=== PATIENT | female | born 1960 | race Caucasian/White ===

== ENCOUNTER 2016-07-03 11:43 | Observation (INO) ==
[2016-07-03] MEDS ORDERED: Aspirin 81 MG TAB.CHEW PO ONE (15:03)
--- NOTE | 2016-07-03 15:08 | Emergency Department Note ---
Disposition Clinical Impression: Chest pain Qualifiers: Chest pain type: unspecified Qualified Code(s): R07.9 - Chest pain, unspecified GI bleed Qualifiers: GI bleed type/associated pathology: unspecified gastrointestinal hemorrhage type Qualified Code(s): K92.2 - Gastrointestinal hemorrhage, unspecified Disposition: Admitted As Inpatient Condition: Fair Referrals: Gabriel Ramos, PAC [Primary Care Provider] - Forms: ED Satisfaction Letter Time of Disposition: 16:54 Chest Pain HPI - General Chief Complaint: ED Recheck/Abnormal Lab/Rx Stated Complaint: abn EKG Time Seen by Provider: 07/03/16 14:59 Source: patient Limitations: no limitations Vital Signs Reviewed: Yes Nursing Notes Reviewed: Yes - History of Present Illness HPI Narrative: 55-year-old whose been having intermittent chest pain for the last several days. Recent states she's had no recent cardiac workup. She saw her family doctor today and he was concerned that she had an abnormal EKG. On arrival review of her EKG shows no significant change from previous done in 2014. The patient states she does have exertional chest pain with exertional dyspnea that has been progressive over the last couple weeks. Pt complaint: chest pain Onset (ago): week(s) Duration: intermittent Onset: during exertion Pain Location: substernal, left chest Severity: mild, moderate Severity scale (1-10): 0 Quality: tightness, heaviness Pain Radiation: none Improves with: rest Worsens with: exertion Associated symptoms: Denies: syncope, palpitations, fever, cough Treatments prior to arrival chest pain: none - Related Data Home Medications Medication Instructions Recorded Confirmed Aspirin 81 mg PO DAILY 04/22/16 07/03/16 Atenolol [Tenormin] 50 mg PO HS 04/22/16 07/03/16 Furosemide [Lasix] 40 mg PO DAILY 04/22/16 07/03/16 Insulin DETEMIR [Levemir] 64 unit SQ QPM 04/22/16 07/03/16 Insulin DETEMIR [Levemir] 67 unit SQ QAM 04/22/16 07/03/16 Insulin LISPRO [Humalog] 0 unit SQ BID 04/22/16 07/03/16 Metformin HCl [Metformin HCl] 1,000 mg PO BID 04/22/16 07/03/16 Omeprazole [PriLOSEC] 40 mg PO DAILY 04/22/16 07/03/16 Pravastatin Sodium [Pravachol] 80 mg PO HS 04/22/16 07/03/16 Valsartan [Diovan] 80 mg PO DAILY 04/22/16 07/03/16 Albiglutide [Tanzeum] 30 mg SQ QWEEK 07/03/16 07/03/16 Pregabalin [Lyrica] 100 mg PO BID 07/03/16 07/03/16 Allergies Allergy/AdvReac Type Severity Reaction Status Date / Time codeine AdvReac Chest Pain Verified 07/03/16 11:52 ibuprofen AdvReac See Verified 07/03/16 11:52 Comments All systems ED: reviewed and negative except as stated. Constitutional: Denies: fever, chills, weakness, weight change Eyes: Denies: eye pain, eye discharge, vision change ENT ED: Denies: ear pain, throat pain, dental pain, hearing loss, epistaxis, congestion, dysphagia Cardiovascular: Reports: chest pain, dyspnea on exertion. Denies: palpitations , edema, syncope Respiratory: Denies: cough, dyspnea, wheezes, hemoptysis, stridor Gastrointestinal: Denies: abdominal pain, nausea, vomiting, diarrhea, constipation, hematemesis, melena, hematochezia Genitourinary: Denies: dysuria, frequency, hematuria, discharge Musculoskeletal: Denies: back pain, neck pain, arthralgia, myalgia Integumentary: Denies: rash, abrasion, lesions Neurological: Denies: headache, weakness, numbness, paresthesias, confusion, abnormal gait, vertigo Psychiatric: Denies: anxiety, depression, suicidal thoughts, homicidal thoughts , auditory hallucinations, visual hallucinations Endocrine: Denies: fatigue Hematological/Lymphatic: Denies: easy bleeding, easy bruising Allergic/Immunologic: Denies: facial swelling, urticaria Chest Pain PMH - Past Medical History Medical history: Reports: arthritis, diabetes, fibromyalgia, migraine, other Surgical history: Reports: cholecystectomy, herniorrhaphy, hysterectomy, other Psychiatric history: Reports: no psych history EMBEDDED SOFTWARE ARCHITECT history: Reports: no EMBEDDED SOFTWARE ARCHITECT history - Social History Smoking Status: Never smoker Alcohol use: Reports: none Drug use: Reports: none Physical Exam - General Limitations: no limitations General appearance: alert, in no apparent distress - Head Head exam: atraumatic, normocephalic, normal inspection - Eye Eye exam: Present: normal appearance, PERRL, EOMI - ENT ENT exam: normal exam, normal oropharynx, mucous membranes moist - Neck Neck exam: Present: normal inspection, full ROM, trachea midline - Chest Chest inspection: Present: normal inspection, symmetric chest wall rise - Respiratory Respiratory exam: Present: normal lung sounds bilaterally - Cardiovascular Cardiovascular exam: Present: regular rate, normal rhythm, normal heart sounds - Abdominal Exam Abdominal exam: Present: soft, Non-Tender. Absent: guarding, rebound - Rectal Exam Product Support Sales Representative present during exam: Yes Rectal exam: Present: heme (+) stool, hemorrhoids - Extremities Exam Extremities exam: Present: normal inspection, full ROM. Absent: tenderness, pedal edema - Expanded Lower Extremity Exam Neurovascular/Tendon exam: Absent: motor deficit, sensory deficit, tendon deficit Gait: observed and normal - Back Exam Back exam: Present: normal inspection, full ROM. Absent: tenderness - Neurological Exam Neurological exam: Present: alert, oriented X3 - Psychiatric Psychiatric exam: Present: normal affect, normal mood - Skin Skin exam: Present: warm, dry, intact, normal color Course - Reevaluation(s) Reevaluation #1: 55-year-old with exertional dyspnea and some intermittent exertional chest pain there was noted to have a hemoglobin of 7.4. Since the previous hemoglobin was low in March that was normal prior to that. The patient does state that she's had some dark stools. She is having no gross blood. Rectal exam is guaiac positive. Time: 16:53 - Consultations Consultation #1: Discussed with Dr. Poe, admit. Time: 17:39 Consultation #2: Discussed with Dr. Laguerre will see in consult. Time: 17:46 Vital Signs Temperature 98.0 F 07/03/16 11:48 Pulse Rate 59 07/03/16 11:48 Respiratory Rate 18 07/03/16 11:48 Blood Pressure 108/48 07/03/16 11:48 O2 Sat by Pulse Oximetry 99 07/03/16 11:48 Temperature 98.0 F 07/03/16 11:48 Pulse Rate 54 07/03/16 16:42 Respiratory Rate 18 07/03/16 16:42 Blood Pressure 98/72 07/03/16 16:42 O2 Sat by Pulse Oximetry 100 07/03/16 16:42 Oxygen Delivery Oxygen Delivery Room Air Chest Pain - Lab Data Lab results reviewed: Yes I reviewed the patient's lab results. Result diagrams: 07/03/16 15:21 07/03/16 15:21 Lab Results 07/03/16 07/03/16 07/03/16 Range/Units 15:21 15:21 15:21 WBC 4.4 (4.3-11.1) K/mcL RBC 3.85 (3.82-4.97) M/mcL Hgb 7.4 L (11.5-15.4) g/dL Hct 27.2 L (35.3-44.9) % MCV 70.6 L (83.0-100.0) fL MCH 19.2 L (28.0-33.3) pg MCHC 27.2 L (31.6-35.5) g/dL RDW 18.0 H (11.5-14.5) % Plt Count 153 (140-400) K/mcL MPV 10.5 (9.4-12.4) fL Immature Gran % 0.9 (0-4) % Seg Neutrophils % 56.9 % Lymphocytes % 30.9 % Monocytes % 7.5 % Eosinophils % 3.6 % Basophils % 0.2 % Neutrophils # 2.5 (1.6-8.9) K/mcL Lymphocytes # 1.4 (0.6-4.6) K/mcL Monocytes # 0.3 (0.0-1.3) K/mcL Eosinophils # 0.2 (0.0-0.6) K/mcL Basophils # 0.0 (0.0-0.2) K/mcL Polychromasia 1+ A (Not Present) Hypochromasia Present A (Not Present) PT 11.8 (9.4-12.1) Seconds INR 1.1 APTT 30.5 (26.0-36.0) Seconds Sodium 142 (136-145) mEq/L Potassium 3.7 (3.5-4.5) mEq/L Chloride 105 (98-109) mEq/L Carbon Dioxide 25 (19-29) mEq/L BUN 16 (7-20) mg/dL Creatinine 0.83 (0.57-1.11) mg/dL Est GFR ( Amer) > 60 (> 60) Est GFR (Non-Af Amer) > 60 (> 60) BUN/Creatinine Ratio 19 (6-26) Glucose 214 H (70-99) mg/dL Calculated Osmolality 302 H (280-300) Calcium 9.3 (8.6-10.8) mg/dL Troponin I (0-0.03) ng/mL 07/03/16 Range/Units 15:21 WBC (4.3-11.1) K/mcL RBC (3.82-4.97) M/mcL Hgb (11.5-15.4) g/dL Hct (35.3-44.9) % MCV (83.0-100.0) fL MCH (28.0-33.3) pg MCHC (31.6-35.5) g/dL RDW (11.5-14.5) % Plt Count (140-400) K/mcL MPV (9.4-12.4) fL Immature Gran % (0-4) % Seg Neutrophils % % Lymphocytes % % Monocytes % % Eosinophils % % Basophils % % Neutrophils # (1.6-8.9) K/mcL Lymphocytes # (0.6-4.6) K/mcL Monocytes # (0.0-1.3) K/mcL Eosinophils # (0.0-0.6) K/mcL Basophils # (0.0-0.2) K/mcL Polychromasia (Not Present) Hypochromasia (Not Present) PT (9.4-12.1) Seconds INR APTT (26.0-36.0) Seconds Sodium (136-145) mEq/L Potassium (3.5-4.5) mEq/L Chloride (98-109) mEq/L Carbon Dioxide (19-29) mEq/L BUN (7-20) mg/dL Creatinine (0.57-1.11) mg/dL Est GFR ( Amer) (> 60) Est GFR (Non-Af Amer) (> 60) BUN/Creatinine Ratio (6-26) Glucose (70-99) mg/dL Calculated Osmolality (280-300) Calcium (8.6-10.8) mg/dL Troponin I 0.00 (0-0.03) ng/mL - EKG Data EKG attestation: Yes I reviewed and interpreted this EKG. EKG shows normal: sinus rhythm Rate: bradycardia Rhythm: NSR When compared to previous EKG there are: no significant changes (11/21/2014) Interpretation: no acute changes Heart Score - Score History: Moderately Suspicious EKG: Non Specific repolarisation Disturbance Age: 45-65 Risk Factors: 1-2 risk factors Troponin: Less than normal limit HEART Score Total: 4 Critical Care Time Critical Care Time: Yes Total Critical Care Time: 30 Attestation: The high probability of a clinically significant, sudden or life threatening deterioration of the [cardiovascular] system(s) required my full and direct attention, intervention and personal management. The aggregate critical care time was [30] minutes. This time is in addition to time spent performing reported procedures but includes the following: [x] Data Review and interpretation [x] Patient assessment and monitoring of vital signs [x] Documentation [x] Medication orders and management
[2016-07-03 15:36] LABS: Basophils % 0.2 %; Eosinophils # 0.2 K/mcL (0.0-0.6); Eosinophils % 3.6 %; Hematocrit 27.2 % (35.3-44.9); Hemoglobin 7.4 g/dL (11.5-15.4); Immature Granulocytes % 0.9 % (0-4); Lymphocytes # 1.4 K/mcL (0.6-4.6); Lymphocytes % 30.9 %; Mean Corpuscular HGB Conc 27.2 g/dL (31.6-35.5); Mean Corpuscular Hemoglobin 19.2 pg (28.0-33.3); Mean Corpuscular Volume 70.6 fL (83.0-100.0); Mean Platelet Volume 10.5 fL (9.4-12.4); Monocytes # 0.3 K/mcL (0.0-1.3); Monocytes % 7.5 %; Neutrophils # 2.5 K/mcL (1.6-8.9); Platelet Count 153 K/mcL (140-400); Red Blood Count 3.85 M/mcL (3.82-4.97); Segmented Neutrophils % 56.9 %
[2016-07-03 15:44] LABS: INR 1.1; Prothrombin Time 11.8 Seconds (9.4-12.1)
[2016-07-03 15:46] LABS: Activated Partial Thrombo Time 30.5 Seconds (26.0-36.0)
[2016-07-03 15:47] LABS: BUN/Creatinine Ratio 19 (6-26); Blood Urea Nitrogen 16 mg/dL (7-20); Calcium 9.3 mg/dL (8.6-10.8); Carbon Dioxide 25 mEq/L (19-29); Chloride 105 mEq/L (98-109); Glucose 214 mg/dL (70-99); Osmolality,Calculated 302 (280-300); Potassium 3.7 mEq/L (3.5-4.5); Sodium 142 mEq/L (136-145); eGFR For African Americans > 60 (> 60); eGFR For Non-African Americans > 60 (> 60)
[2016-07-03 16:01] LABS: Hypochromasia Present (Not Present); Polychromasia 1+ (Not Present)
[2016-07-03] MEDS ORDERED: Pantoprazole 40 MG VIAL IVP ONE (16:56)
--- NOTE | 2016-07-03 20:38 | Internal Med History&Physical ---
<Mitesh Torres - Last Filed: 07/03/16 23:34> Date of Encounter: 07/03/16 Time of Encounter: 20:00 Assessment and Plan (1) GI bleed Current visit: Yes Status: Acute - Reported dark stool with positive guaiac test in ED. - Likely upper GI bleed given the melena and history of GERD. - Protonix 40 mg IV BID. - ED physician had called and consulted Dr. Laguerre of [facility]. Appreciate further evaluation and recommendations. - NPO now for possible EGD tomorrow. Qualifiers: GI bleed type/associated pathology: unspecified gastrointestinal hemorrhage type Qualified Code(s): K92.2 - Gastrointestinal hemorrhage, unspecified (2) Microcytic anemia Current visit: Yes Status: Acute - Hgb 7.4 today with MCV 70.6. - Symptomatic anemia with exertional dyspnea and chest pain. - Most likely secondary to GI bleed but patient may have iron deficiency anemia at her baseline given patient's prior CBC in March 2016 also showed microcytic anemia. - Pending iron panel and ferritin. - Patient is receiving one unit of pRBC. - Closely monitor H&H an consider more pRBC transfusion accordingly. (3) Chest pain Current visit: Yes Status: Resolved - Exertional chest tightness associated with shortness of breath. - Likely demand ischemia secondary to current anemia. - Unlikely DC given negative troponin with no significant ischemic change on EKG. - Patient reports no chest pain/discomfort at this time. Qualifiers: Chest pain type: unspecified Qualified Code(s): R07.9 - Chest pain, unspecified (4) Diabetes mellitus Current visit: Yes Status: Chronic - With neuropathy and on basal & sliding scale insulin at home. - Will switch to q6H sliding scale insulin with moderate correction for now given patient will be NPO tonight for possible EGD tomorrow. - Continue to monitor blood glucose closely. Qualifiers: Diabetes mellitus type: type 2 Diabetes mellitus complication status: with neurologic complications Diabetes mellitus complication detail: with polyneuropathy Diabetes mellitus keno terminal operator insulin use: with keno terminal operator use Qualified Code(s): E11.42 - Type 2 diabetes mellitus with diabetic polyneuropathy; Z79.4 - residential (current) use of insulin (5) Hypertension Current visit: Yes Status: Chronic - BP within normal range. - Continue home antihypertensive regimen. Qualifiers: Hypertension type: essential hypertension Qualified Code(s): I10 - Essential (primary) hypertension (6) DVT prophylaxis Current visit: Yes Status: Acute - Given current GI bleed, no pharmacologic DVT prophylaxis at this time. - Start calf pump as mechanical DVT prophylaxis. Internal Medicine - H&P: HPI Chief complaint: Chest pain and dyspnea on exertion Admitted From: Emergency Dept Plans for Post Hospital Care: Home History of present illness: Ms. Andino is a 55 year old female with PMH of DM with neuropathy, GERD on omeprazole, fibromyalgia, migraine, HTN, hyperlipidemia. Patient was sent from her PCP clinic to [facility] for abnormal EKG. Patient reports having worsening intermittent chest pain and dyspnea on exertion for past 3 weeks. Patient also reports having occasional dark stool in past 3 weeks. Patient reports no easily bruise, bleeding, hematemesis, hemopytysis, hematuria. Patient denies lightheadedness, syncope, palpitation, abdominal pain, nausea, vomiting, diarrhea, fever, chills. Patient recalls no EGD in the past. She did have colonoscopy done in 2008 and was told it's normal at that time. Patient denies known cardiac problem. In ED, patient has positive stool guaiac test. Patient received IV Protonix and Dr. Laguerre of [facility] was called and consulted. Past Med Surg Social Fam HX - Past Medical History Medical history: arthritis, diabetes (with neuropathy), fibromyalgia, migraine, other Psychiatric history: no psych history - Past Surgical History Surgical History: cholecystectomy, herniorrhaphy, hysterectomy, other - Social History Smoking Status: Never smoker Smokeless Tobacco Status: No Alcohol use: none Drug use: none - Family History Sister Living Status: Age at : 49 Cause of : cardiac Hx Family Cardiac Disorders: Yes Mother Hx Family Endocrine Disorder: Yes (DM) Internal Medicine - H&P: Meds Aspirin 81 mg PO DAILY 04/22/16 [History] Atenolol [Tenormin] 50 mg PO HS 04/22/16 [History] Furosemide [Lasix] 40 mg PO DAILY 04/22/16 [History] Insulin DETEMIR [Levemir] 64 unit SQ QPM 04/22/16 [History] Insulin DETEMIR [Levemir] 67 unit SQ QAM 04/22/16 [History] Insulin LISPRO [Humalog] 0 unit SQ BID 04/22/16 [History] Metformin HCl [Metformin HCl] 1,000 mg PO BID 04/22/16 [History] Omeprazole [PriLOSEC] 40 mg PO DAILY 04/22/16 [History] Pravastatin Sodium [Pravachol] 80 mg PO HS 04/22/16 [History] Valsartan [Diovan] 80 mg PO DAILY 04/22/16 [History] Albiglutide [Tanzeum] 30 mg SQ QWEEK 07/03/16 [History] Insulin LISPRO [HumaLOG] 0 units SQ BID 07/03/16 [History] Pregabalin [Lyrica] 100 mg PO BID 07/03/16 [History] Allergies codeine Adverse Reaction (Verified 07/03/16 11:52) Chest Pain ibuprofen Adverse Reaction (Verified 07/03/16 11:52) See Comments PATIENT STATES UNABLE TO TAKE DUE TO TYPE [address] ORDERS All Systems PM: A 10-system review of systems was performed and is negative for pertinent findings except as documented above in the HPI. - Constitutional Constitutional: no anorexia, no chills, no fever(s) - EENT Eyes: no change in vision Ears: no decreased hearing Nose, mouth and throat: no dysphagia, no odynophagia - Cardiovascular Cardiovascular ROS IM: chest pain (Exertional), no diaphoresis, no lightheadedness, no palpitations, no syncope - Respiratory Respiratory: dyspnea on exertion, no cough, no hemoptysis - Gastrointestinal Gastrointestinal: as per HPI - Genitourinary Genitourinary: dysuria, no difficulty urinating, no hematuria - Musculoskeletal Musculoskeletal ROS IM: no arthralgias, no myalgias - Integumentary Integumentary IM: no pruritus, no rash - Neurological Neurological ROS: tingling (Chronic, from DM neuropathy) - Hematologic/Lymphatic Hematologic/Lymphatic: no easy bleeding, no easy bruising - Constitutional Vitals: Temp Pulse Resp BP Pulse Ox 98.2 F 60 14 108/70 95 07/03/16 20:11 07/03/16 20:11 07/03/16 20:11 07/03/16 20:11 07/03/16 20:11 General appearance: Present: cooperative, A&O X 3, no acute distress, answers questions appropriately - Head Head exam: Present: atraumatic, normocephalic - Eye Eye exam: Present: PERRL, conjuntiva pink, sclera anicteric - Neck Neck exam general surgery: Present: supple, trachea midline. Absent: lymphadenopathy - Respiratory Respiratory exam: Present: CTAB. Absent: accessory muscle use, rales, rhonchi, wheezes - Cardiovascular Cardiovascular exam: Present: RRR, +S1, +S2. Absent: diastolic murmur, gallop, rubs, systolic murmur - GI/Abdominal GI/Abdominal exam: Present: normal bowel sounds, soft, no peritoneal signs. Absent: distended, tenderness - Extremities Exam Extremities exam: Present: warm, radial pulses palpable and symetrical. Absent : calf tenderness, cyanotic, pedal edema - Neurological Exam Neurological exam: Present: CN II-XII intact, oriented X3, no focal deficits. Absent: pronater drift, facial droop, speech deficit - Skin Skin exam: Present: dry, intact, warm Internal Med - H&P Results - Labs CBC & Chem 7: 07/03/16 15:21 07/03/16 15:21 <Andi Chawla - Last Filed: 07/04/16 05:18> Date of Encounter: 07/03/16 Internal Medicine - H&P: HPI History of present illness: Ms. Andino is a 55 year old female All Systems PM: A 10-system review of systems was performed and is negative for pertinent findings except as documented above in the HPI. - Constitutional Vitals: Temp Pulse Resp BP Pulse Ox 98.1 F 55 16 110/66 95 07/04/16 03:59 07/04/16 03:59 07/04/16 03:59 07/04/16 03:59 07/04/16 03:59 Internal Med - H&P Results - Labs CBC & Chem 7: 07/03/16 15:21 07/04/16 03:51 Labs: BMP 07/04/16 03:51 Sodium 141 Potassium 3.7 Chloride 107 Carbon Dioxide 23 BUN 16 Creatinine 0.94 Glucose 272 H Calcium 8.9 Liver Function 07/04/16 Range/Units 03:51 Total Bilirubin 0.5 (0.2-1.2) mg/dL AST 35 H (5-34) Units/L ALT 23 (0-55) Units/L Alkaline Phosphatase 73 (38-126) Units/L Albumin 2.9 L (3.5-5.0) g/dL Urine 07/04/16 Range/Units 01:35 Urine Color Yellow (Yellow) Urine Clarity Cloudy A (Clear) Urine pH 7.0 (5.0-8.0) pH Units Ur Specific [place] 1.030 H (1.010-1.025) Urine Protein Negative (Neg-Trace) mg/dL Urine Glucose (UA) >=1000 H (Normal) mg/dL - EKG Data -: EKG Interpreted by Myself EKG shows normal: sinus rhythm Rate: bradycardia - EKG Data Prior EKG available for review: yes When compared to previous EKG: there is no significant change Interpretation IM: normal EKG - Diagnostic Studies Chest x-ray Status: image reviewed by me - Attending Attestation I interviewed and examined this patient and my medical decision-making was reviewed with the Resident Physician. I agree with the documented findings, disposition and treatment plan as described.
[2016-07-03] MEDS ORDERED: Naloxone 0.4 MG/ML INJ IVP PRN (20:41)
[2016-07-03] MEDS ORDERED: Acetaminophen 325 MG TABLET PO PRN (20:41)
[2016-07-03] MEDS ORDERED: Dextrose Gel 15 GM PO PRN ×2 (20:45)
[2016-07-03] MEDS ORDERED: *HR* Dextrose 50 % in Water (Syg) 50 ML SYRINGE IVP PRN (20:45)
[2016-07-03] MEDS ORDERED: D5% in Water 1,000 ML IVC PRN (20:45)
[2016-07-03] MEDS: Pregabalin 50 MG CAPSULE PO SCH (21:22)
[2016-07-03] MEDS: Pantoprazole 40 MG VIAL IVP SCH (21:22)
[2016-07-03 22:37] LABS: % Iron Saturation 5 % (15-50); Iron 24 mcg/dL (50-170); Transferrin 353 mg/dL (180-382)
[2016-07-03 22:56] LABS: Ferritin 15 ng/ml (5-204)
[2016-07-04] MEDS: Insulin LISPRO 300 UNITS/3 ML VIAL SQ SCH ×4 (00:05→18:55)
[2016-07-04 02:04] LABS: Bilirubin,Urine Negative (Negative); Blood,Urine Negative (Negative); Clarity,Urine Cloudy (Clear); Color,Urine Yellow (Yellow); Glucose,Urine (UA) >=1000 mg/dL (Normal); Ketones,Urine Negative (Negative); Leukocyte Esterase,Urine Moderate (Negative); Nitrite,Urine Negative (Negative); Protein,Urine Negative (Neg-Trace); Urobilinogen,Urine Normal (Normal)
[2016-07-04 02:06] LABS: Bacteria,Urine None Seen per hpf (None-Few); Hyaline Casts,Urine None Seen per lpf (None-Few); Squamous Epithelial Cell,Urine Many per lpf (None-Few); WBC,Urine TNTC per hpf (0-3)
[2016-07-04 04:41] LABS: Immature Granulocytes % 0.7 % (0-4); Mean Corpuscular Hemoglobin 20.3 pg (28.0-33.3)
[2016-07-04 04:43] LABS: Basophils % 0.2 %; Eosinophils # 0.2 K/mcL (0.0-0.6); Eosinophils % 4.5 %; Hematocrit 26.4 % (35.3-44.9); Hemoglobin 7.3 g/dL (11.5-15.4); Immature Platelets 7.6 % (1.1-6.1); Lymphocytes # 1.4 K/mcL (0.6-4.6); Lymphocytes % 31.6 %; Mean Corpuscular HGB Conc 27.7 g/dL (31.6-35.5); Mean Corpuscular Volume 73.5 fL (83.0-100.0); Mean Platelet Volume 10.8 fL (9.4-12.4); Monocytes % 9.9 %; Neutrophils # 2.4 K/mcL (1.6-8.9); Nucleated Red Blood Cells 0.4 /100 WBC (0); Platelet Count 137 K/mcL (140-400); Red Blood Count 3.59 M/mcL (3.82-4.97); Red Cell Distribution Width 18.9 % (11.5-14.5); Segmented Neutrophils % 53.1 %
[2016-07-04 04:55] LABS: Alanine Aminotransferase 23 Units/L (0-55); Albumin 2.9 g/dL (3.5-5.0); Albumin/Globulin Ratio 1.1 (1.1-2.2); Alkaline Phosphatase 73 Units/L (38-126); Aspartate Amino Transferase 35 Units/L (5-34); BUN/Creatinine Ratio 17 (6-26); Bilirubin,Total 0.5 mg/dL (0.2-1.2); Blood Urea Nitrogen 16 mg/dL (7-20); Calcium 8.9 mg/dL (8.6-10.8); Carbon Dioxide 23 mEq/L (19-29); Chloride 107 mEq/L (98-109); Globulin 2.7 g/dL (2.4-3.5); Glucose 272 mg/dL (70-99); Osmolality,Calculated 303 (280-300); Potassium 3.7 mEq/L (3.5-4.5); Sodium 141 mEq/L (136-145); Total Protein 5.6 g/dL (6.0-8.3); eGFR For African Americans > 60 (> 60); eGFR For Non-African Americans > 60 (> 60)
[2016-07-04 06:04] LABS: Monocytes # 0.5 K/mcL (0.0-1.3)
[2016-07-04 06:16] LABS: Anisocytosis 1+ (Not Present); Hypochromasia Present (Not Present); Large Platelets Present (Not Present); Microcytosis Present (Not Present); Platelet Estimate Slight Decrease (Normal)
[2016-07-04] MEDS: Pregabalin 50 MG CAPSULE PO SCH ×2 (08:33→20:17)
[2016-07-04] MEDS: Furosemide 40 MG TABLET PO SCH (08:33)
[2016-07-04] MEDS: Valsartan 80 MG TABLET PO SCH (08:33)
[2016-07-04] MEDS: Pantoprazole 40 MG VIAL IVP SCH ×2 (08:35→20:17)
--- NOTE | 2016-07-04 11:53 | Electrocardiograph Report ---
[address] [place], [place] [address] Test Date: 2016-07-03 Pat Name: Mariela Andino Department: 104 Room: 3B Gender: F Informatics Consultant: : 1960 Requested By: Yue See Order Number: [id number] Reading MD: Rory Lima MD Measurements Intervals [place] Rate: 55 P: 3 TN: 180 QRS: -7 QRSD: 110 T: -7 QT: 441 QTc: 430 Interpretive Statements SINUS BRADYCARDIA ANTERIOR ISCHEMIA Electronically Signed On 07-04-2016 11:52:22 EDT by Rroy Lima MD
--- NOTE | 2016-07-04 16:26 | General Surgery Consult Note ---
Date of Encounter: 07/04/16 Time of Encounter: 16:20 Assessment and Plan (1) Microcytic anemia Current Visit: Yes Status: Acute Patient was hemoccult positive in the ED Her hgb was documented as being low in March 2016 - 8.4 Recommend PPI therapy daily Carafate QID for 2 weeks May check H. Pylori Plan for outpatient follow-up with Dr. Laguerre to discuss outpatient EGD/ Colonoscopy in the upcoming weeks. Clear liquid diet Advance to regular diet as tolerated History of Present Illness Consult date: 07/04/16 Requesting physician: Jorge Egan History of present illness: Ms. Andino is a very pleasant 55 year old female who presented to [facility] ED at the recommendation of her PCP for a low hemoglobin. The patient states that she has been feeling more fatigued and short of breath with exertion lately. She states that she has been trying to be more active at the recommendation of her PCP. She states that her symptoms have increasingly worsened over the past 3 weeks. She denies any melena or hematochezia. She states that she may have had some darker than typical stools over the past few weeks. She denies any nausea or vomiting. Denies any abdominal discomfort. Denies any unexplained weight loss. Denies any family history of colon cancer. Denies any NSAID or chronic aspirin use. We have been asked to see and evaluate the patient for endoscopic evaluation. Past Med Surg Social Fam HX - Past Medical History Source: patient, old records reviewed Medical history: arthritis, diabetes (with neuropathy), fibromyalgia, migraine, other Psychiatric history: no psych history - Past Surgical History Surgical History: cholecystectomy, herniorrhaphy, hysterectomy, other - Social History Smoking Status: Never smoker Smokeless Tobacco Status: No Alcohol use: none Drug use: none Current living situation: Home - Independent Activity Level: Independent ambulation - Family History Sister Living Status: Age at : 49 Cause of : cardiac Hx Family Cardiac Disorders: Yes Mother Hx Family Endocrine Disorder: Yes (DM) Medications and Allergies Aspirin 81 mg PO DAILY 04/22/16 [History] Atenolol [Tenormin] 50 mg PO HS 04/22/16 [History] Furosemide [Lasix] 40 mg PO DAILY 04/22/16 [History] Insulin DETEMIR [Levemir] 64 unit SQ QPM 04/22/16 [History] Insulin DETEMIR [Levemir] 67 unit SQ QAM 04/22/16 [History] Insulin LISPRO [Humalog] 0 unit SQ BID 04/22/16 [History] Metformin HCl [Metformin HCl] 1,000 mg PO BID 04/22/16 [History] Omeprazole [PriLOSEC] 40 mg PO DAILY 04/22/16 [History] Pravastatin Sodium [Pravachol] 80 mg PO HS 04/22/16 [History] Valsartan [Diovan] 80 mg PO DAILY 04/22/16 [History] Albiglutide [Tanzeum] 30 mg SQ QWEEK 07/03/16 [History] Insulin LISPRO [HumaLOG] 0 units SQ BID 07/03/16 [History] Pregabalin [Lyrica] 100 mg PO BID 07/03/16 [History] Allergies codeine Adverse Reaction (Verified 07/03/16 11:52) Chest Pain ibuprofen Adverse Reaction (Verified 07/03/16 11:52) See Comments PATIENT STATES UNABLE TO TAKE DUE TO TYPE [address] ORDERS Review of Systems All systems PM: reviewed and no additional remarkable complaints except as stated (in the HPI) All systems PM: A 10-system review of systems was performed and is negative for pertinent findings except as documented above in the HPI. General Surgery Exam Initial Vital Signs Temp Pulse Resp BP Pulse Ox 98.0 F 59 18 108/48 99 07/03/16 11:48 07/03/16 11:48 07/03/16 11:48 07/03/16 11:48 07/03/16 11:48 - General physical appearance well developed, well nourished, no distress, no pain - Eyes normal ocular movement - ENT normal mucosa, atraumatic, normocephalic - Neck trachea midline - Respiratory normal expansion, normal respiratory effort, clear to auscultation - Cardiovascular Cardiovascular exam: Present: RRR, 15, 16 - Abdomen Abdomen general surgery: Present: bowel sounds present, soft, non tender - Integumentary Integumentary general surgery: Present: warm and dry - Neurologic Present: CN 2-12 grossly intact - Musculoskeletal Present: normal gait, normal posture - Psychiatric Psychiatric general surgery: Present: appropriate, oriented to person, oriented to place, oriented to time, speech is normal, memory intact Exam Initial Vital Signs Temp Pulse Resp BP Pulse Ox 98.0 F 59 18 108/48 99 07/03/16 11:48 07/03/16 11:48 07/03/16 11:48 07/03/16 11:48 07/03/16 11:48 Results - Labs 07/04/16 03:51 07/04/16 03:51 Abnormal lab results RBC 3.59 M/mcL (3.82-4.97) L 07/04/16 03:51 Hgb 7.3 g/dL (11.5-15.4) L 07/04/16 03:51 Hct 26.4 % (35.3-44.9) L 07/04/16 03:51 MCV 73.5 fL (83.0-100.0) L 07/04/16 03:51 MCH 20.3 pg (28.0-33.3) L 07/04/16 03:51 MCHC 27.7 g/dL (31.6-35.5) L 07/04/16 03:51 RDW 18.9 % (11.5-14.5) H 07/04/16 03:51 Plt Count 137 K/mcL (140-400) L 07/04/16 03:51 Nucleated RBCs/100 WBC 0.4 /100 WBC (0) H 07/04/16 03:51 Platelet Estimate Slight Decrease (Normal) L 07/04/16 03:51 Large Platelets Present (Not Present) A 07/04/16 03:51 Immature Plt Fraction 7.6 % (1.1-6.1) H 07/04/16 03:51 Polychromasia 1+ (Not Present) A 07/03/16 15:21 Hypochromasia Present (Not Present) A 07/04/16 03:51 Anisocytosis 1+ (Not Present) A 07/04/16 03:51 Microcytosis Present (Not Present) A 07/04/16 03:51 Glucose 272 mg/dL (70-99) H 07/04/16 03:51 POC Glucose 297 (58-89) H 07/04/16 11:38 Calculated Osmolality 303 (280-300) H 07/04/16 03:51 Iron 24 mcg/dL (50-170) L 07/03/16 15:21 % Saturation 5 % (15-50) L 07/03/16 15:21 AST 35 Units/L (5-34) H 07/04/16 03:51 Serum Total Protein 5.6 g/dL (6.0-8.3) L 07/04/16 03:51 Albumin 2.9 g/dL (3.5-5.0) L 07/04/16 03:51 Urine Clarity Cloudy (Clear) A 07/04/16 01:35 Ur Specific [place] 1.030 (1.010-1.025) H 07/04/16 01:35 Urine Glucose (UA) >=1000 mg/dL (Normal) H 07/04/16 01:35 Ur Leukocyte Esterase Moderate (Negative) H 07/04/16 01:35 Urine Microscopic RBC 5-15 per hpf (0-3) H 07/04/16 01:35 Urine Microscopic WBC TNTC per hpf (0-3) H 07/04/16 01:35 Ur Squamous Epith Cells Many per lpf (None-Few) H 07/04/16 01:35 Ur Culture Indicated? YES (NO) A 07/04/16 01:35 Diabetes panel 07/04/16 Range/Units 03:51 Sodium 141 (136-145) mEq/L Potassium 3.7 (3.5-4.5) mEq/L Chloride 107 (98-109) mEq/L Carbon Dioxide 23 (19-29) mEq/L BUN 16 (7-20) mg/dL Creatinine 0.94 (0.57-1.11) mg/dL Glucose 272 H (70-99) mg/dL Calcium 8.9 (8.6-10.8) mg/dL AST 35 H (5-34) Units/L ALT 23 (0-55) Units/L Alkaline Phosphatase 73 (38-126) Units/L Albumin 2.9 L (3.5-5.0) g/dL Calcium panel 07/04/16 Range/Units 03:51 Calcium 8.9 (8.6-10.8) mg/dL Albumin 2.9 L (3.5-5.0) g/dL Pituitary panel 07/04/16 Range/Units 03:51 Sodium 141 (136-145) mEq/L Potassium 3.7 (3.5-4.5) mEq/L Chloride 107 (98-109) mEq/L Carbon Dioxide 23 (19-29) mEq/L BUN 16 (7-20) mg/dL Creatinine 0.94 (0.57-1.11) mg/dL Glucose 272 H (70-99) mg/dL Calcium 8.9 (8.6-10.8) mg/dL Adrenal panel 07/04/16 Range/Units 03:51 Sodium 141 (136-145) mEq/L Potassium 3.7 (3.5-4.5) mEq/L Chloride 107 (98-109) mEq/L Carbon Dioxide 23 (19-29) mEq/L BUN 16 (7-20) mg/dL Creatinine 0.94 (0.57-1.11) mg/dL Glucose 272 H (70-99) mg/dL Calcium 8.9 (8.6-10.8) mg/dL Total Bilirubin 0.5 (0.2-1.2) mg/dL AST 35 H (5-34) Units/L ALT 23 (0-55) Units/L Alkaline Phosphatase 73 (38-126) Units/L Albumin 2.9 L (3.5-5.0) g/dL All other labs normal. - Imaging Additional studies: Chest X-Ray 07/03/16 15:03 IMPRESSION: 1. Cardiomegaly without overt failure. D/ / Bam Ruiz MD / Bam Ruiz MD Interpreting Provider: Bam Ruiz MD Consult Discharge Plan - Plan Referrals: Gabriel Ramos, PAC [Primary Care Provider] - Santos Laguerre DO [Partnered Physician] - 07/23/16 9:45 am (discuss outpatient EGD/Colonoscopy)
--- NOTE | 2016-07-04 19:16 | Internal Med Progress Note ---
Date of Encounter: 07/04/16 Time of Encounter: 10:00 - Assessment and plan (1) Microcytic anemia Current Visit: Yes Status: Acute Assessment and plan: Patient has exertional shortness of breath. Hgb is low. Anemia workup shows Iron deficiency. - Etiology is undetermined, need to r/o malignancy - Will give iron pills. - Surgical consult appreciated, plan for further d/w pt regarding EGD/ Colonoscope as outpatient. - Closely monitor H/H. (2) Diabetes mellitus Current Visit: Yes Status: Chronic Assessment and plan: Basal insulin and Sliding scale coverage Qualifiers: Diabetes mellitus type: type 2 Diabetes mellitus complication status: with neurologic complications Diabetes mellitus complication detail: with polyneuropathy Diabetes mellitus prison insulin use: with prison use Qualified Code(s): E11.42 - Type 2 diabetes mellitus with diabetic polyneuropathy; Z79.4 - moth exterminator (current) use of insulin (3) DVT prophylaxis Current Visit: Yes Status: Acute Assessment and plan: EPCD (4) Hypertension Current Visit: Yes Status: Chronic Assessment and plan: BP is stable continue home medications Qualifiers: Hypertension type: essential hypertension Qualified Code(s): I10 - Essential (primary) hypertension - Time Spent With Patient 25 - 35 minutes - Subjective Interval history: Patient is a 55-year-old female admitted for exertional shortness of breath and low hemoglobin. Past medical history is significant for diabetes, fibromyalgia and migraine. Patient was found guaiac-positive in ER by ER doctor. I saw and examined patient. She is still weak and exertional shortness of breath. Hemoglobin is stable for 2 days. Vital signs stable. Anemia workup shows iron deficiency. We will give iron pills. Patient in need EGD and a colonoscopy to rule out malignancy, surgical consult was called by ER doctor. Surgical consult appreciated and the plan for scopes as outpatient. - Constitutional Vitals: Temp Pulse Resp BP Pulse Ox 97.8 F 54 17 103/63 97 07/04/16 14:53 07/04/16 14:53 07/04/16 14:53 07/04/16 14:53 07/04/16 14:53 General appearance: Present: cooperative, A&O X 3, no acute distress, answers questions appropriately - Head Head exam: Present: atraumatic, normocephalic - Eye Eye exam: Present: PERRL, conjuntiva pink, sclera anicteric Pupils: Present: PERRL - Neck Neck exam general surgery: Present: supple, trachea midline. Absent: lymphadenopathy - Respiratory Respiratory exam: Present: CTAB. Absent: accessory muscle use, rales, rhonchi, wheezes - Cardiovascular Cardiovascular exam: Present: RRR, +S1, +S2. Absent: diastolic murmur, gallop, rubs, systolic murmur - GI/Abdominal GI/Abdominal exam: Present: normal bowel sounds, soft, no peritoneal signs. Absent: distended, tenderness - Extremities Exam Extremities exam: Present: warm, radial pulses palpable and symetrical. Absent : calf tenderness, cyanotic, pedal edema - Neurological Exam Neurological exam: Present: CN II-XII intact, oriented X3, no focal deficits. Absent: pronater drift, facial droop, speech deficit - Skin Skin exam: Present: dry, intact Internal Medicine: Result - Labs CBC & Chem 7: 07/04/16 03:51 07/04/16 03:51 Labs: Short CBC 07/04/16 Range/Units 03:51 WBC 4.5 (4.3-11.1) K/mcL Hgb 7.3 L (11.5-15.4) g/dL Hct 26.4 L (35.3-44.9) % Plt Count 137 L (140-400) K/mcL Neutrophils # 2.4 (1.6-8.9) K/mcL BMP 07/04/16 03:51 Sodium 141 Potassium 3.7 Chloride 107 Carbon Dioxide 23 BUN 16 Creatinine 0.94 Glucose 272 H Calcium 8.9 Liver Function 07/04/16 Range/Units 03:51 Total Bilirubin 0.5 (0.2-1.2) mg/dL AST 35 H (5-34) Units/L ALT 23 (0-55) Units/L Alkaline Phosphatase 73 (38-126) Units/L Albumin 2.9 L (3.5-5.0) g/dL Urine 07/04/16 Range/Units 01:35 Urine Color Yellow (Yellow) Urine Clarity Cloudy A (Clear) Urine pH 7.0 (5.0-8.0) pH Units Ur Specific [place] 1.030 H (1.010-1.025) Urine Protein Negative (Neg-Trace) mg/dL Urine Glucose (UA) >=1000 H (Normal) mg/dL - ABG Interpretation ABG results: PT/INR, D-dimer PT 11.8 Seconds (9.4-12.1) 07/03/16 15:21 Consult Discharge Plan - Plan Referrals: Santos Laguerre, [Partnered Physician] - 07/23/16 9:45 am (discuss outpatient EGD/Colonoscopy) Gabriel Ramos, PAC [Primary Care Provider] -
[2016-07-04] MEDS ORDERED: D5% in Water 1,000 ML IVC PRN (19:19)
[2016-07-04] MEDS ORDERED: Insulin LISPRO 300 UNITS/3 ML VIAL SQ SCH (21:00)
[2016-07-04] MEDS: Sucralfate 1 GM TABLET PO SCH (22:05)
[2016-07-05 05:35] LABS: Basophils % 0.2 %; Hemoglobin 7.3 g/dL (11.5-15.4)
[2016-07-05 05:37] LABS: Eosinophils # 0.2 K/mcL (0.0-0.6); Eosinophils % 4.2 %; Hematocrit 26.1 % (35.3-44.9); Immature Granulocytes % 1.2 % (0-4); Lymphocytes # 1.5 K/mcL (0.6-4.6); Lymphocytes % 35.3 %; Mean Corpuscular Hemoglobin 20.7 pg (28.0-33.3); Mean Corpuscular Volume 73.9 fL (83.0-100.0); Mean Platelet Volume 11.4 fL (9.4-12.4); Monocytes # 0.4 K/mcL (0.0-1.3); Monocytes % 8.8 %; Neutrophils # 2.2 K/mcL (1.6-8.9); Platelet Count 129 K/mcL (140-400); Red Blood Count 3.53 M/mcL (3.82-4.97); Red Cell Distribution Width 19.3 % (11.5-14.5); Segmented Neutrophils % 50.3 %
[2016-07-05 06:29] LABS: Hypochromasia Present (Not Present); Platelet Estimate Normal (Normal)
[2016-07-05 06:30] LABS: Polychromasia 1+ (Not Present)
[2016-07-05] MEDS ORDERED: Insulin DETEMIR 100 UNIT/ML X5UNITS SQ SCH ×2 (09:00→18:00)
[2016-07-05] MEDS ORDERED: INSULIN DETEMIR SQ SCH (09:00)
[2016-07-05] MEDS: Pregabalin 50 MG CAPSULE PO SCH (09:09)
[2016-07-05] MEDS: Furosemide 40 MG TABLET PO SCH (09:10)
[2016-07-05] MEDS: Insulin LISPRO 300 UNITS/3 ML VIAL SQ SCH ×3 (09:11→12:28)
[2016-07-05] MEDS: Valsartan 80 MG TABLET PO SCH (09:11)
[2016-07-05] MEDS: Sucralfate 1 GM TABLET PO SCH ×2 (09:14→12:00)
[2016-07-05] MEDS: Pantoprazole 40 MG VIAL IVP SCH (09:19)
[2016-07-05] MEDS ORDERED: Fluconazole 100 MG TABLET PO ONE (09:22)
--- NOTE | 2016-07-05 10:24 | Discharge Summary ---
Date of Encounter: 07/05/16 Time of Encounter: 10:00 - Discharge Diagnosis (1) Microcytic anemia Priority: Primary Status: Acute (2) Diabetes mellitus Priority: Secondary Status: Chronic Qualifiers: Diabetes mellitus type: type 2 Diabetes mellitus complication status: with neurologic complications Diabetes mellitus complication detail: with polyneuropathy Diabetes mellitus mcc insulin use: with rn long term care use Qualified Code(s): E11.42 - Type 2 diabetes mellitus with diabetic polyneuropathy; Z79.4 - assistant terminal manager (current) use of insulin (3) DVT prophylaxis Priority: Secondary Status: Acute (4) Hypertension Priority: Secondary Status: Chronic Qualifiers: Hypertension type: essential hypertension Qualified Code(s): I10 - Essential (primary) hypertension (5) UTI (urinary tract infection) Priority: Primary Status: Acute Qualifiers: Urinary tract infection type: acute cystitis Hematuria presence: without hematuria Qualified Code(s): N30.00 - Acute cystitis without hematuria - Discharge Medications Prescriptions: Ciprofloxacin HCl [Cipro] 250 mg PO BID #6 tab Ferrous Sulfate 325 mg PO DAILY@0800 #30 tablet Home Medications: Aspirin 81 mg PO DAILY 04/22/16 [History] Atenolol [Tenormin] 50 mg PO HS 04/22/16 [History] Furosemide [Lasix] 40 mg PO DAILY 04/22/16 [History] Insulin DETEMIR [Levemir] 64 unit SQ QPM 04/22/16 [History] Insulin DETEMIR [Levemir] 67 unit SQ QAM 04/22/16 [History] Insulin LISPRO [Humalog] 0 unit SQ BID 04/22/16 [History] Metformin HCl 1,000 mg PO BID 04/22/16 [History] Omeprazole [PriLOSEC] 40 mg PO DAILY 04/22/16 [History] Pravastatin Sodium [Pravachol] 80 mg PO HS 04/22/16 [History] Valsartan [Diovan] 80 mg PO DAILY 04/22/16 [History] Albiglutide [Tanzeum] 30 mg SQ QWEEK 07/03/16 [History] Insulin LISPRO [HumaLOG] 0 units SQ BID 07/03/16 [History] Pregabalin [Lyrica] 100 mg PO BID 07/03/16 [History] Ciprofloxacin HCl [Cipro] 250 mg PO BID #6 tab 07/05/16 [Rx] Ferrous Sulfate 325 mg PO DAILY@0800 #30 tablet 07/05/16 [Rx] Allergies/Adverse Reactions: Allergies codeine Adverse Reaction (Verified 07/03/16 11:52) Chest Pain ibuprofen Adverse Reaction (Verified 07/03/16 11:52) See Comments PATIENT STATES UNABLE TO TAKE DUE TO TYPE 2 DIABETES PER ORDERS Procedures/tests Complete & Pending: Procedures Performed prior 72 hours Category Date Time Status EV echocardiogram Routine Y 07/04/16 12:40 Completed - Notes to Outpatient Provider Patient has are not deficiency anemia, on ferrous sulfate 325 mg daily. Will follow-up with Dr. Laguerre as outpatient for EGD and colonoscopy. Date of admission: 07/03/16 18:00 Primary care physician: Gabriel Ramos Discharging clinician: Suyapa Amato Anticipated date of discharge: 07/05/16 - Patient Status Disposition: Home, Self-Care Condition: Fair Functional capacity at discharge: independent ambulation Overall status at discharge: patient is back to baseline - Discharge Instructions Follow Up With: Santos Laguerre DO [Partnered Physician] - 07/23/16 9:45 am (discuss outpatient EGD/Colonoscopy) Gabriel Ramos, PAC [Primary Care Provider] - - Diet and Activity Activity: increase activity as tolerated Diet: diabetic diet Interval History: Ms. Andino is a 55 year old female with PMH of DM with neuropathy, GERD on omeprazole, fibromyalgia, migraine, HTN, hyperlipidemia. Patient was sent from her PCP clinic to [facility] for abnormal EKG. Patient reports having worsening intermittent chest pain and dyspnea on exertion for past 3 weeks. Patient also reports having occasional dark stool in past 3 weeks. Patient reports no easily bruise, bleeding, hematemesis, hemopytysis, hematuria. Patient denies lightheadedness, syncope, palpitation, abdominal pain, nausea, vomiting, diarrhea, fever, chills. Patient recalls no EGD in the past. She did have colonoscopy done in 2008 and was told it's normal at that time. Patient denies known cardiac problem. In ED, patient has positive stool guaiac test. Patient received IV Protonix and Dr. Laguerre of [facility] was called and consulted. Hospital course: Ms. Andino is a 55 year old female admitted for anemia and exertional shortness of breath. Anemia workup shows iron deficiency anemia. Patient has a positive guaiac test in the ER. Surgical consult was called and saw patient. Plan to schedule old patient EGD and colonoscopy. Patient will discharge home with by mouth Iron pill. Follow up with surgeon Dr. Laguerre as outpatient. I saw and examined the patient today. She is awake alert, oriented 3. Denies chest pain or shortness of breath. Vitals are stable. Hemoglobin level stable for 3 days, no signs of active bleeding. Urinalysis is showing UTI, will give Cipro by mouth upon discharge. Patient is stable to discharge home. - Time Spent with Patient Total time spent providing and/or coordinating discharge services: 25 min Less than 30 minutes - Constitutional Vitals: Temp Pulse Resp BP Pulse Ox 97.9 F 53 16 105/64 96 07/05/16 07:21 07/05/16 07:21 07/05/16 07:21 07/05/16 07:21 07/05/16 07:21 General appearance: Present: cooperative, A&O X 3, no acute distress, answers questions appropriately - Head Head exam: Present: atraumatic, normocephalic - Eye Eye exam: Present: PERRL, conjuntiva pink, sclera anicteric Pupils: Present: PERRL - Neck Neck exam general surgery: Present: supple, trachea midline. Absent: lymphadenopathy - Respiratory Respiratory exam: Present: CTAB. Absent: accessory muscle use, rales, rhonchi, wheezes - Cardiovascular Cardiovascular exam: Present: RRR, +S1, +S2. Absent: diastolic murmur, gallop, rubs, systolic murmur - GI/Abdominal GI/Abdominal exam: Present: normal bowel sounds, soft, no peritoneal signs. Absent: distended, tenderness - Extremities Exam Extremities exam: Present: warm, radial pulses palpable and symetrical. Absent : calf tenderness, cyanotic, pedal edema - Neurological Exam Neurological exam: Present: CN II-XII intact, oriented X3, no focal deficits. Absent: pronater drift, facial droop, speech deficit - Skin Skin exam: Present: dry, intact
--- NOTE | 2016-07-05 11:06 | ECHO - Doppler Report ---
Echocardiogram Name: Mariela Andino Date of Study: 07/04/2016 Date: 1960 Ht: 66.0 in Medical Record#: [id number] Age: 55 Wt: 202.0 lb Gender: Female BSA: 2.01 Order #: [id number] Location: [facility] Room #: 3B Reading Physician: Abebe Card DO, [facility] Rate Supervisor: Tabitha Dias Ordering Physician: Suyapa Amato MD Primary Physician: CHARLOTTE Chen Indications: Shortness of breath Impressions: LVEF 60-65%. Normal LV chamber size, wall thickness and function. Moderate left ventricular diastolic dysfunction. Normal right ventricular structure and function. Mildly calcified aortic valve leaflets. Moderate-severe aortic stenosis (mean gradient 36 mmHg, peak velocity 3.7 m/s, KARIE 0.89 cm2). No evidence of pulmonary hypertension. Compared to prior report, severity of aortic stenosis has worsened. Given age and severity of aortic stenosis, MICHAELLE to evaluate for bicuspid aortic valve could be considered. Left Ventricular Wall Motion: Rest Echo Findings All wall segments showed normal motion. Findings: Study Quality * Technically adequate exam. ECG Findings * Normal sinus rhythm. Left Ventricle * LVEF 60-65%. * Normal LV chamber size, wall thickness and function. * Moderate left ventricular diastolic dysfunction. Right Ventricle * Normal right ventricular structure and function. Left Atrium * Mildly dilated left atrium. Right Atrium * Mildly dilated right atrium. Aortic Valve * Mildly calcified aortic valve leaflets. Difficult to determine the number of leaflets. * Trace aortic regurgitation. * Moderate-severe aortic stenosis (mean gradient 36 mmHg, peak velocity 3.7 m/s, KARIE 0.89 cm2). Mitral Valve * Mild mitral annular calcification * Trace mitral regurgitation. * No mitral stenosis. Tricuspid Valve * Normal tricuspid valve structure and function. * Trace tricuspid regurgitation. * No evidence of pulmonary hypertension. Pulmonic Valve * Normal pulmonic valve structure and function. * No pulmonic regurgitation. Aorta * Normally sized aortic root - 3.8 cm. Mild effacement of the sinotubular junction. Pericardium * There is a trivial pericardial effusion present. IVC * Normal IVC dimensions and inspiratory collapse. Pulmonary Artery * Normal visualized portions of the main pulmonary artery. History Hypertension Diabetes Hypercholesteremia Family History of CAD 09/08/2015 a Previous Echo was performed. Measurements: BP: 103/ 63 2D Normal Values RVIDd: 4.10 cm <2.7 cm IVSd: 1.00 cm 0.6 - 1.0 cm LVIDd: 5.50 cm 3.7 - 5.6 cm LVPWd: 1.00 cm 0.6 - 1.1 cm LVIDs: 2.30 cm 1.5 - 3.6 cm AO: 3.60 cm < 4.0 cm LA: 4.30 cm 2.0 - 4.0cm %FS: 58.20 cm >25 % LVOT Diam: 2.10 cm LA volume: Mitral Valve Peak E:1.15 m/sec Peak A:.91 m/sec E/A Ratio:1.3 Peak E' Lat Heber:11.6 cm/s Peak E' Med Heber:6.24 cm/s E/E' Lat Ratio:9.9 E/E' Med Ratio:18.4 LVOT Peak Heber:1.02 m/sec Mean Heber:.75 m/sec Peak Grad:4.00 mmHg Mean Grad:2.00 mmHg Aortic Valve Peak Heber:3.70 m/sec Mean Heber:2.85 m/sec Peak Grad:55.00 mmHg Mean Grad:36.00 mmHg Valve Area:.89 cm2 Tricuspid Valve TV Regurg Peak Grad: 26.00mmHg TV Regurg Peak Heber: 2.57m/sec Updated by Abebe Card DO, [place], SIENA, MILLA on 07/05/2016 10:52:37 AM electronically signed on 07/05/2016 10:59:27 AM with status of Final Wall Motion Alex: 1=Normal, 2=Hypokinesis, 3=Akinesis, 4=Dyskinesis, 5=Aneurysmal, 6=Hyperkinetic, X=Not Visualized (Blank)=Missing
[2016-07-05 15:08] VITALS: BP 94/58
[2016-07-05] MEDS ORDERED: INSULIN DETEMIR 64 UNIT SQ SCH (19:21)
== END 2016-07-05 16:08 | disposition home or self-care (01) ==
LOC: EMEROO 11:43 → 3BNU 11:43 → SUATTDRO 18:00 → 3BNU 18:25
PROVIDERS: ADMIT Internal Medicine Endocrinology, Diabetes & Metabolism; ATTEND Internal Medicine

== ENCOUNTER 2019-03-11 10:29 | Inpatient (IN) ==
[~2019-03-11 10:29] MED LIST: *HR* Heparin 10,000 UNIT/10 ML VIAL ONE; 0.9 % Sodium Chloride 1,000 ML ONE; Heparin 1,000 UNITS/500 mL 500 ML ONE; ISOVUE-370 200 ML INFUS..BTL ONE; Nitroglycerin 1,000 MCG/10 ML VIAL IV ONE
[2019-03-11] MEDS ORDERED: 0.9 % Sodium Chloride 1,000 ML IVC SCH (11:00)
[2019-03-11] MEDS ORDERED: *HR* FentaNYL (PF) 100 MCG/2 ML VIAL ONE (13:04)
[2019-03-11] MEDS ORDERED: Water for inj. (sterile) 0 ML ONE (13:05)
[2019-03-11] MEDS ORDERED: *HR* Midazolam HCl 5 MG/5 ML VIAL IVP ONE (13:05)
[2019-03-11] MEDS ORDERED: Naloxone 0.4 MG/ML INJ IVP PRN (14:13)
[2019-03-11] MEDS ORDERED: *HR* Dextrose 50 % in Water (Syg) 50 ML SYRINGE IVP PRN (14:27)
[2019-03-11] MEDS ORDERED: Dextrose Gel 15 GM/37.5 ML TUBE PO PRN ×2 (14:27)
[2019-03-11] MEDS ORDERED: D5% in Water 1,000 ML IVC PRN (14:27)
[2019-03-11] MEDS ORDERED: *HR* Heparin 5,000 UNIT/ML VIAL IVP PRN ×2 (15:11)
[2019-03-11] MEDS ORDERED: *HR* Heparin 5,000 UNIT/ML VIAL IVP ONE (15:11)
[2019-03-11] MEDS ORDERED: Heparin 25,000 UNIT/250 ML D5W 25,000 UNIT/250 ML IV.SOLN IVC SCH (15:15)
[2019-03-11 16:50] LABS: Red Cell Distribution Width 13.9 % (11.5-14.5)
[2019-03-11 16:52] LABS: Hematocrit 31.4 % (35.3-44.9); Hemoglobin 10.4 g/dL (11.5-15.4); Immature Platelets 6.2 % (1.1-6.1); Mean Corpuscular HGB Conc 33.1 g/dL (31.6-35.5); Mean Corpuscular Volume 99.7 fL (83.0-100.0); Red Blood Count 3.15 M/mcL (3.82-4.97); White Blood Count 3.3 K/mcL (4.3-11.1)
[2019-03-11 16:57] LABS: Heparin anti-factor XA UFH 0.12 IU/mL (0.30-0.70); INR 1.2; Prothrombin Time 13.3 Seconds (9.4-12.1)
[2019-03-11] MEDS: Pregabalin 50 MG CAPSULE PO SCH ×2 (17:26→20:05)
[2019-03-11] MEDS: Insulin LISPRO 300 UNITS/3 ML VIAL SQ SCH (17:34)
[2019-03-11] MEDS: Furosemide 40 MG TABLET PO SCH (20:04)
[2019-03-11] MEDS: Acetaminophen 325 MG TABLET PO PRN (21:40)
[2019-03-12 00:22] LABS: Basophils % 0.2 %; Hemoglobin 10.9 g/dL (11.5-15.4)
[2019-03-12 00:24] LABS: Eosinophils # 0.1 K/mcL (0.0-0.6); Eosinophils % 1.3 %; Immature Granulocytes % 0.2 % (0-4); Immature Platelets 6.8 % (1.1-6.1); Lymphocytes # 1.3 K/mcL (0.6-4.6); Lymphocytes % 27.5 %; Mean Platelet Volume 12.1 fL (9.4-12.4); Monocytes # 0.4 K/mcL (0.0-1.3); Monocytes % 8.6 %; Red Cell Distribution Width 13.9 % (11.5-14.5); Segmented Neutrophils % 62.2 %; White Blood Count 4.6 K/mcL (4.3-11.1)
[2019-03-12 00:31] LABS: Neutrophils # 2.9 K/mcL (1.6-8.9); Platelet Count 87 K/mcL (140-400)
[2019-03-12 00:43] LABS: BUN/Creatinine Ratio 19 (6-26); Blood Urea Nitrogen 20 mg/dL (8-23); Calcium 8.7 mg/dL (8.6-10.3); Carbon Dioxide 25 mEq/L (23-29); Chloride 106 mEq/L (98-107); Glucose 298 mg/dL (70-105); Magnesium 1.7 mg/dL (1.6-2.6); Osmolality,Calculated 302 (280-300); Potassium 4.4 mEq/L (3.5-5.1); Sodium 139 mEq/L (136-145); eGFR For African Americans > 60 (> 60); eGFR For Non-African Americans 54 (> 60)
[2019-03-12] MEDS: Insulin LISPRO 300 UNITS/3 ML VIAL SQ SCH ×3 (08:39→16:54)
[2019-03-12] MEDS: Insulin DETEMIR 100 UNIT/ML X5UNITS SQ SCH (08:47)
[2019-03-12] MEDS: Pregabalin 50 MG CAPSULE PO SCH ×3 (08:48→20:01)
[2019-03-12] MEDS: Aspirin 81 MG TAB.CHEW PO SCH (08:48)
[2019-03-12] MEDS: Cholecalciferol (D-3) 1,000 UNIT (25MCG) TABLET PO SCH (08:48)
[2019-03-12] MEDS: Cyanocobalamin (B-12) 1,000 MCG TABLET PO SCH (08:48)
[2019-03-12] MEDS ORDERED: Valsartan 160 MG TABLET PO SCH (09:00)
[2019-03-12] MEDS: Acetaminophen 325 MG TABLET PO PRN (13:31)
[2019-03-12] MEDS ORDERED: Heparin 1,000 UNITS/500 mL 500 ML ONE (14:09)
[2019-03-12] MEDS ORDERED: 0.9 % Sodium Chloride 1,000 ML ONE (14:09)
[2019-03-12] MEDS ORDERED: ISOVUE-370 200 ML INFUS..BTL ONE (14:09)
[2019-03-12] MEDS ORDERED: Nitroglycerin 1,000 MCG/10 ML VIAL IV ONE (14:09)
[2019-03-12] MEDS ORDERED: *HR* Heparin 10,000 UNIT/10 ML VIAL ONE (14:09)
[2019-03-12] MEDS ORDERED: *HR* FentaNYL (PF) 100 MCG/2 ML VIAL ONE (14:45)
[2019-03-12] MEDS ORDERED: *HR* Midazolam HCl 2 MG/2 ML VIAL ONE (14:45)
[2019-03-12] MEDS ORDERED: Diltiazem CD (24hr) 180 MG CAPSULE PO SCH (16:02)
[2019-03-12] MEDS: Furosemide 40 MG TABLET PO SCH ×2 (16:08→20:02)
[2019-03-12] MEDS: Apixaban 5 MG TABLET PO SCH (20:02)
[2019-03-13 05:39] LABS: Basophils % 0.2 %; Hemoglobin 10.5 g/dL (11.5-15.4); Immature Granulocytes % 0.7 % (0-4); Mean Corpuscular Volume 100.6 fL (83.0-100.0)
[2019-03-13 05:41] LABS: Eosinophils # 0.1 K/mcL (0.0-0.6); Eosinophils % 1.4 %; Immature Platelets 6.9 % (1.1-6.1); Lymphocytes # 0.8 K/mcL (0.6-4.6); Lymphocytes % 18.9 %; Mean Corpuscular HGB Conc 32.8 g/dL (31.6-35.5); Mean Platelet Volume 11.4 fL (9.4-12.4); Monocytes # 0.4 K/mcL (0.0-1.3); Monocytes % 9.6 %; Neutrophils # 2.9 K/mcL (1.6-8.9); Red Blood Count 3.18 M/mcL (3.82-4.97); Red Cell Distribution Width 13.7 % (11.5-14.5); Segmented Neutrophils % 69.2 %; White Blood Count 4.2 K/mcL (4.3-11.1)
[2019-03-13 05:44] LABS: Platelet Count 81 K/mcL (140-400)
[2019-03-13 06:00] LABS: BUN/Creatinine Ratio 17 (6-26); Blood Urea Nitrogen 14 mg/dL (8-23); Calcium 8.7 mg/dL (8.6-10.3); Carbon Dioxide 27 mEq/L (23-29); Chloride 106 mEq/L (98-107); Glucose 239 mg/dL (70-105); Osmolality,Calculated 300 (280-300); Potassium 4.1 mEq/L (3.5-5.1); Sodium 141 mEq/L (136-145); eGFR For African Americans > 60 (> 60); eGFR For Non-African Americans > 60 (> 60)
[2019-03-13] MEDS ORDERED: Furosemide 20 MG/2 ML VIAL IVP ONE (08:41)
[2019-03-13] MEDS ORDERED: Valsartan 160 MG TABLET PO SCH (09:00)
[2019-03-13] MEDS: Furosemide 40 MG TABLET PO SCH ×2 (09:09→20:04)
[2019-03-13] MEDS: Pregabalin 50 MG CAPSULE PO SCH ×3 (09:12→20:04)
[2019-03-13] MEDS: Cyanocobalamin (B-12) 1,000 MCG TABLET PO SCH (09:13)
[2019-03-13] MEDS: Apixaban 5 MG TABLET PO SCH ×2 (09:13→20:03)
[2019-03-13] MEDS: Diltiazem CD (24hr) 240 MG CAPSULE PO SCH (09:13)
[2019-03-13] MEDS: Aspirin 81 MG TAB.CHEW PO SCH (09:13)
[2019-03-13] MEDS: Cholecalciferol (D-3) 1,000 UNIT (25MCG) TABLET PO SCH (09:14)
[2019-03-13] MEDS: Insulin LISPRO 300 UNITS/3 ML VIAL SQ SCH ×4 (09:19→22:40)
[2019-03-13] MEDS: Insulin DETEMIR 100 UNIT/ML X5UNITS SQ SCH (09:19)
[2019-03-13] MEDS: Benzonatate 100 MG CAPSULE PO PRN (15:24)
[2019-03-13] MEDS ORDERED: Diltiazem CD (24hr) 180 MG CAPSULE PO SCH (16:00)
[2019-03-14 03:49] LABS: Basophils % 0.3 %; Eosinophils % 2.1 %; Hematocrit 31.6 % (35.3-44.9); Immature Granulocytes % 0.8 % (0-4); Nucleated Red Blood Cells 0.5 /100 WBC (0)
[2019-03-14 03:51] LABS: Eosinophils # 0.1 K/mcL (0.0-0.6); Hemoglobin 10.3 g/dL (11.5-15.4); Immature Platelets 7.3 % (1.1-6.1); Mean Corpuscular HGB Conc 32.6 g/dL (31.6-35.5); Mean Corpuscular Hemoglobin 32.4 pg (28.0-33.3); Mean Corpuscular Volume 99.4 fL (83.0-100.0); Mean Platelet Volume 11.1 fL (9.4-12.4); Monocytes # 0.4 K/mcL (0.0-1.3); Monocytes % 10.4 %; Neutrophils # 2.3 K/mcL (1.6-8.9); Red Blood Count 3.18 M/mcL (3.82-4.97); Red Cell Distribution Width 13.6 % (11.5-14.5); Segmented Neutrophils % 59.4 %; White Blood Count 3.9 K/mcL (4.3-11.1)
[2019-03-14 03:53] LABS: Lymphocytes # 1.1 K/mcL (0.6-4.6); Platelet Count 83 K/mcL (140-400)
[2019-03-14 04:08] LABS: BUN/Creatinine Ratio 26 (6-26); Blood Urea Nitrogen 20 mg/dL (8-23); Carbon Dioxide 29 mEq/L (23-29); Chloride 105 mEq/L (98-107); Glucose 191 mg/dL (70-105); Osmolality,Calculated 300 (280-300); Potassium 3.6 mEq/L (3.5-5.1); Sodium 141 mEq/L (136-145); eGFR For African Americans > 60 (> 60); eGFR For Non-African Americans > 60 (> 60)
[2019-03-14] MEDS: Cholecalciferol (D-3) 1,000 UNIT (25MCG) TABLET PO SCH (08:33)
[2019-03-14] MEDS: Cyanocobalamin (B-12) 1,000 MCG TABLET PO SCH (08:33)
[2019-03-14] MEDS: Furosemide 40 MG TABLET PO SCH (08:34)
[2019-03-14] MEDS: Apixaban 5 MG TABLET PO SCH ×2 (08:34→20:40)
[2019-03-14] MEDS: Diltiazem CD (24hr) 240 MG CAPSULE PO SCH (08:34)
[2019-03-14] MEDS: Pregabalin 50 MG CAPSULE PO SCH ×3 (08:34→20:41)
[2019-03-14] MEDS: Aspirin 81 MG TAB.CHEW PO SCH (08:34)
[2019-03-14] MEDS: Insulin LISPRO 300 UNITS/3 ML VIAL SQ SCH ×4 (08:35→20:43)
[2019-03-14] MEDS: Insulin DETEMIR 100 UNIT/ML X5UNITS SQ SCH (08:44)
[2019-03-14] MEDS: Benzonatate 100 MG CAPSULE PO PRN ×2 (12:13→20:43)
[2019-03-14] MEDS ORDERED: Diltiazem SR (12hr) 60 MG CAPSULE PO ONE (13:00)
[2019-03-15 05:04] LABS: Immature Granulocytes % 0.9 % (0-4)
[2019-03-15 05:06] LABS: Basophils % 0.2 %; Eosinophils # 0.1 K/mcL (0.0-0.6); Eosinophils % 2.2 %; Hematocrit 30.7 % (35.3-44.9); Immature Platelets 6.6 % (1.1-6.1); Lymphocytes # 1.1 K/mcL (0.6-4.6); Lymphocytes % 24.8 %; Mean Corpuscular HGB Conc 32.6 g/dL (31.6-35.5); Mean Corpuscular Hemoglobin 32.9 pg (28.0-33.3); Mean Platelet Volume 11.2 fL (9.4-12.4); Monocytes # 0.4 K/mcL (0.0-1.3); Monocytes % 9.1 %; Neutrophils # 2.9 K/mcL (1.6-8.9); Red Blood Count 3.04 M/mcL (3.82-4.97); Red Cell Distribution Width 13.4 % (11.5-14.5); Segmented Neutrophils % 62.8 %; White Blood Count 4.6 K/mcL (4.3-11.1)
[2019-03-15 05:11] LABS: Platelet Count 97 K/mcL (140-400)
[2019-03-15 05:27] LABS: BUN/Creatinine Ratio 28 (6-26); Blood Urea Nitrogen 22 mg/dL (8-23); Calcium 9.2 mg/dL (8.6-10.3); Carbon Dioxide 28 mEq/L (23-29); Chloride 103 mEq/L (98-107); Glucose 188 mg/dL (70-105); Osmolality,Calculated 302 (280-300); Potassium 3.8 mEq/L (3.5-5.1); Sodium 142 mEq/L (136-145); eGFR For African Americans > 60 (> 60); eGFR For Non-African Americans > 60 (> 60)
[2019-03-15] MEDS: Insulin LISPRO 300 UNITS/3 ML VIAL SQ SCH ×4 (08:16→20:17)
[2019-03-15] MEDS: Aspirin 81 MG TAB.CHEW PO SCH (08:34)
[2019-03-15] MEDS: Pregabalin 50 MG CAPSULE PO SCH ×3 (08:34→20:17)
[2019-03-15] MEDS: Apixaban 5 MG TABLET PO SCH ×2 (08:34→20:16)
[2019-03-15] MEDS: Cholecalciferol (D-3) 1,000 UNIT (25MCG) TABLET PO SCH (08:35)
[2019-03-15] MEDS: Cyanocobalamin (B-12) 1,000 MCG TABLET PO SCH (08:35)
[2019-03-15] MEDS ORDERED: Diltiazem CD (24hr) 180 MG CAPSULE PO SCH (09:00)
[2019-03-15] MEDS ORDERED: 0.9 % Sodium Chloride 500 ML IVC ONE (09:42)
[2019-03-15] MEDS ORDERED: Lidocaine Viscous Oral Soln 15 ML SOLUTION MM PRN (09:42)
[2019-03-15] MEDS: *HR* Midazolam HCl 5 MG/5 ML VIAL IVP PRN ×2 (10:45→11:15)
[2019-03-15] MEDS: *HR* FentaNYL (PF) 100 MCG/2 ML VIAL IVP PRN ×2 (10:45→11:15)
[2019-03-15] MEDS: Furosemide 40 MG TABLET PO SCH (12:32)
[2019-03-15] MEDS: Insulin DETEMIR 100 UNIT/ML X5UNITS SQ SCH (12:38)
[2019-03-15] MEDS: Metoprolol XL (24 HR) Succ 50 MG TAB.ER.24H PO SCH (20:17)
[2019-03-16 06:47] LABS: Hematocrit 30.9 % (35.3-44.9); Mean Corpuscular Volume 101.6 fL (83.0-100.0); Red Blood Count 3.04 M/mcL (3.82-4.97)
[2019-03-16 06:48] VITALS: BP 113/80
[2019-03-16 06:49] LABS: Basophils % 0.2 %; Eosinophils # 0.1 K/mcL (0.0-0.6); Eosinophils % 2.6 %; Immature Granulocytes % 0.7 % (0-4); Immature Platelets 7.4 % (1.1-6.1); Lymphocytes # 1.2 K/mcL (0.6-4.6); Mean Corpuscular HGB Conc 32.4 g/dL (31.6-35.5); Mean Corpuscular Hemoglobin 32.9 pg (28.0-33.3); Mean Platelet Volume 11.5 fL (9.4-12.4); Monocytes # 0.4 K/mcL (0.0-1.3); Neutrophils # 2.8 K/mcL (1.6-8.9); Platelet Count 86 K/mcL (140-400); Segmented Neutrophils % 61.5 %; White Blood Count 4.5 K/mcL (4.3-11.1)
[2019-03-16 07:05] LABS: BUN/Creatinine Ratio 29 (6-26); Blood Urea Nitrogen 25 mg/dL (8-23); Calcium 9.1 mg/dL (8.6-10.3); Carbon Dioxide 29 mEq/L (23-29); Chloride 103 mEq/L (98-107); Glucose 174 mg/dL (70-105); Osmolality,Calculated 301 (280-300); Sodium 141 mEq/L (136-145); eGFR For African Americans > 60 (> 60); eGFR For Non-African Americans > 60 (> 60)
[2019-03-16] MEDS: Pregabalin 50 MG CAPSULE PO SCH (07:49)
[2019-03-16] MEDS: Apixaban 5 MG TABLET PO SCH (07:49)
[2019-03-16] MEDS: Metoprolol XL (24 HR) Succ 50 MG TAB.ER.24H PO SCH (07:50)
[2019-03-16] MEDS: Aspirin 81 MG TAB.CHEW PO SCH (07:50)
[2019-03-16] MEDS: Cholecalciferol (D-3) 1,000 UNIT (25MCG) TABLET PO SCH (07:50)
[2019-03-16] MEDS: Cyanocobalamin (B-12) 1,000 MCG TABLET PO SCH (07:50)
[2019-03-16] MEDS: Furosemide 40 MG TABLET PO SCH (07:50)
[2019-03-16] MEDS: Insulin DETEMIR 100 UNIT/ML X5UNITS SQ SCH (07:56)
[2019-03-16] MEDS: Insulin LISPRO 300 UNITS/3 ML VIAL SQ SCH (07:56)
[2019-03-16] MEDS: Benzonatate 100 MG CAPSULE PO PRN (07:59)
== END 2019-03-16 10:31 | disposition home or self-care (01) | DRG 287 ==
LOC: INVDIALAB 10:29 → 2NENU 15:40
PROVIDERS: ADMIT Internal Medicine Cardiovascular Disease; ATTEND Internal Medicine Cardiovascular Disease

== ENCOUNTER 2019-06-10 19:49 | Observation (INO) ==
[2019-06-10] MEDS ORDERED: Ondansetron 4 MG/2 ML VIAL IVP ONE (19:55)
[2019-06-10] MEDS ORDERED: Morphine Sulfate 2 MG/ML SYRINGE IVP ONE (19:55)
[2019-06-10] MEDS ORDERED: Isovue-370 500 ML BOTTLE IVP ONE (19:55)
[2019-06-10 20:51] LABS: Basophils % 0.3 %; Hemoglobin 10.7 g/dL (11.5-15.4); Immature Granulocytes % 1.7 % (0-4); Mean Corpuscular Volume 96.7 fL (83.0-100.0)
[2019-06-10 20:52] LABS: Eosinophils # 0.1 K/mcL (0.0-0.6); Eosinophils % 2.7 %; Hematocrit 32.1 % (35.3-44.9); Immature Platelets 6.8 % (1.1-6.1); Lymphocytes # 0.9 K/mcL (0.6-4.6); Lymphocytes % 29.9 %; Mean Corpuscular HGB Conc 33.3 g/dL (31.6-35.5); Mean Corpuscular Hemoglobin 32.2 pg (28.0-33.3); Monocytes # 0.3 K/mcL (0.0-1.3); Monocytes % 11.7 %; Neutrophils # 1.6 K/mcL (1.6-8.9); Nucleated Red Blood Cells 0.7 /100 WBC (0); Red Blood Count 3.32 M/mcL (3.82-4.97); Red Cell Distribution Width 15.3 % (11.5-14.5); Segmented Neutrophils % 53.7 %; White Blood Count 2.9 K/mcL (4.3-11.1)
[2019-06-10 20:53] LABS: Platelet Count 93 K/mcL (140-400); Platelet Estimate Decreased (Normal)
[2019-06-10 20:55] LABS: INR 1.3; Prothrombin Time 14.7 Seconds (9.4-12.1)
[2019-06-10 21:11] LABS: Activated Partial Thrombo Time 129.7 Seconds (26.0-36.0)
[2019-06-10 21:12] LABS: BUN/Creatinine Ratio 18 (6-26); Blood Urea Nitrogen 16 mg/dL (8-23); Calcium 9.2 mg/dL (8.6-10.3); Carbon Dioxide 29 mEq/L (23-29); Chloride 105 mEq/L (98-107); Glucose 209 mg/dL (70-105); Osmolality,Calculated 301 (280-300); Potassium 3.5 mEq/L (3.5-5.1); Sodium 142 mEq/L (136-145); eGFR For African Americans > 60 (> 60); eGFR For Non-African Americans > 60 (> 60)
[2019-06-10 21:13] LABS: Troponin I < 0.03 ng/mL (< 0.04)
[2019-06-10] MEDS ORDERED: Naloxone 0.4 MG/ML INJ IVP PRN (22:14)
[2019-06-10] MEDS ORDERED: Ondansetron 4 MG/2 ML VIAL IVP PRN (22:14)
[2019-06-10] MEDS ORDERED: Morphine Sulfate 2 MG/ML SYRINGE IVP PRN (22:16)
[2019-06-10] MEDS ORDERED: Nitroglycerin 0.4 MG TAB.SUBL SL PRN (22:16)
[2019-06-10] MEDS ORDERED: *HR* Dextrose 50 % in Water (Syg) 50 ML SYRINGE IVP PRN (22:49)
[2019-06-10] MEDS ORDERED: D5% in Water 1,000 ML IVC PRN (22:49)
[2019-06-10] MEDS ORDERED: Dextrose Gel 15 GM/37.5 ML TUBE PO PRN ×2 (22:49)
[2019-06-10] MEDS ORDERED: Insulin LISPRO 300 UNITS/3 ML VIAL SQ SCH (23:00)
[2019-06-11] MEDS: Pregabalin 50 MG CAPSULE PO SCH ×2 (00:40→08:59)
[2019-06-11] MEDS: Metoprolol XL (24 HR) Succ 50 MG TAB.ER.24H PO SCH ×2 (00:41→09:00)
[2019-06-11 05:14] LABS: Basophils % 0.3 %
[2019-06-11 05:16] LABS: Eosinophils # 0.1 K/mcL (0.0-0.6); Eosinophils % 4.1 %; Hematocrit 33.3 % (35.3-44.9); Hemoglobin 10.8 g/dL (11.5-15.4); Immature Granulocytes % 1.3 % (0-4); Immature Platelets 6.2 % (1.1-6.1); Lymphocytes # 0.8 K/mcL (0.6-4.6); Lymphocytes % 25.9 %; Mean Corpuscular HGB Conc 32.4 g/dL (31.6-35.5); Mean Corpuscular Volume 98.5 fL (83.0-100.0); Mean Platelet Volume 10.7 fL (9.4-12.4); Monocytes # 0.4 K/mcL (0.0-1.3); Monocytes % 12.5 %; Neutrophils # 1.8 K/mcL (1.6-8.9); Nucleated Red Blood Cells 0.6 /100 WBC (0); Red Blood Count 3.38 M/mcL (3.82-4.97); Red Cell Distribution Width 15.7 % (11.5-14.5); Segmented Neutrophils % 55.9 %; White Blood Count 3.2 K/mcL (4.3-11.1)
[2019-06-11 05:17] LABS: Platelet Count 99 K/mcL (140-400)
[2019-06-11 05:18] LABS: Platelet Estimate Decreased (Normal)
[2019-06-11 05:35] LABS: BUN/Creatinine Ratio 18 (6-26); Blood Urea Nitrogen 16 mg/dL (8-23); Carbon Dioxide 31 mEq/L (23-29); Chloride 106 mEq/L (98-107); Glucose 120 mg/dL (70-105); Osmolality,Calculated 298 (280-300); Potassium 3.6 mEq/L (3.5-5.1); Sodium 143 mEq/L (136-145); eGFR For African Americans > 60 (> 60); eGFR For Non-African Americans > 60 (> 60)
[2019-06-11 07:17] VITALS: BP 105/68
[2019-06-11] MEDS ORDERED: Insulin LISPRO 300 UNITS/3 ML VIAL SQ SCH (07:30)
[2019-06-11] MEDS ORDERED: Furosemide 40 MG TABLET PO SCH (08:00)
[2019-06-11] MEDS ORDERED: Metoprolol XL (24 HR) Succ 50 MG TAB.ER.24H PO SCH (09:00)
[2019-06-11] MEDS ORDERED: lisinopriL 5 MG TABLET PO SCH (09:00)
[2019-06-11] MEDS ORDERED: Valsartan 160 MG TABLET PO SCH (09:00)
[2019-06-11] MEDS ORDERED: Apixaban 5 MG TABLET PO SCH (09:00)
[2019-06-11] MEDS ORDERED: Terbinafine Hcl 250 MG PO SCH (09:00)
[2019-06-11] MEDS ORDERED: Aspirin Enteric Coated 81 MG Tablet PO SCH (09:00)
== END 2019-06-11 11:39 | disposition home or self-care (01) ==
LOC: EMEROOARM 19:49 → 3BNU 19:49 → SUATTDRO 22:17 → 3BNU 23:00
PROVIDERS: ADMIT Internal Medicine; ATTEND Internal Medicine

== ENCOUNTER 2019-06-22 16:59 | Inpatient (IN) ==
[2019-06-22 17:46] LABS: Basophils % 0.2 %; Eosinophils # 0.1 K/mcL (0.0-0.6); Eosinophils % 1.8 %; Hemoglobin 10.8 g/dL (11.5-15.4); Immature Granulocytes % 0.9 % (0-4); Lymphocytes # 1.1 K/mcL (0.6-4.6); Lymphocytes % 25.1 %; Mean Corpuscular HGB Conc 32.7 g/dL (31.6-35.5); Mean Corpuscular Hemoglobin 33.2 pg (28.0-33.3); Mean Corpuscular Volume 101.5 fL (83.0-100.0); Mean Platelet Volume 11.4 fL (9.4-12.4); Monocytes # 0.3 K/mcL (0.0-1.3); Monocytes % 7.8 %; Neutrophils # 2.8 K/mcL (1.6-8.9); Nucleated Red Blood Cells 0.7 /100 WBC (0); Platelet Count 103 K/mcL (140-400); Red Blood Count 3.25 M/mcL (3.82-4.97); Red Cell Distribution Width 15.7 % (11.5-14.5); Segmented Neutrophils % 64.2 %; White Blood Count 4.4 K/mcL (4.3-11.1)
[2019-06-22 17:49] LABS: INR 1.1; Prothrombin Time 12.3 Seconds (9.4-12.1)
[2019-06-22 17:52] LABS: Activated Partial Thrombo Time 41.5 Seconds (26.0-36.0)
[2019-06-22 18:04] LABS: Alanine Aminotransferase 26 Units/L (7-52); Albumin/Globulin Ratio 1.8 (1.1-2.2); Alkaline Phosphatase 76 Units/L (34-104); Aspartate Amino Transferase 23 Units/L (13-39); BUN/Creatinine Ratio 18 (6-26); Bilirubin,Direct 0.1 mg/dL (0.0-0.2); Bilirubin,Indirect 0.4 mg/dL (0.0-1.0); Bilirubin,Total 0.5 mg/dL (0.3-1.0); Blood Urea Nitrogen 15 mg/dL (8-23); Calcium 9.6 mg/dL (8.6-10.3); Carbon Dioxide 26 mEq/L (23-29); Chloride 106 mEq/L (98-107); Globulin 2.2 g/dL (2.4-3.5); Glucose 224 mg/dL (70-105); Osmolality,Calculated 300 (280-300); Potassium 3.8 mEq/L (3.5-5.1); Sodium 141 mEq/L (136-145); Total Protein 6.2 g/dL (6.4-8.9); eGFR For African Americans > 60 (> 60); eGFR For Non-African Americans > 60 (> 60)
[2019-06-22] MEDS ORDERED: Isovue-370 500 ML BOTTLE IVP ONE (18:53)
[2019-06-22] MEDS ORDERED: 0.9 % Sodium Chloride 1,000 ML IVC ONE (18:54)
[2019-06-22] MEDS ORDERED: *HR* FentaNYL (PF) 100 MCG/2 ML VIAL ONE (21:19)
[2019-06-22] MEDS ORDERED: *HR* Midazolam HCl 2 MG/2 ML VIAL ONE ×2 (21:19→22:05)
[2019-06-22] MEDS ORDERED: Vancomycin 1,000 MG VIAL ONE ×2 (21:20→22:31)
[2019-06-22] MEDS ORDERED: Heparin 1,000 UNITS/500 mL 500 ML ONE (21:32)
[2019-06-22] MEDS ORDERED: Ondansetron 4 MG/2 ML VIAL IVP PRN (21:50)
[2019-06-22] MEDS ORDERED: *HR* Labetalol 20 MG/4 ML SYRINGE IVP PRN (21:50)
[2019-06-22] MEDS ORDERED: D5% in 0.45% NACL 1,000 ML IVC SCH (22:00)
[2019-06-22] MEDS ORDERED: *HR* Propofol 200 MG/20 ML VIAL IVP ONE (22:28)
[2019-06-23] MEDS ORDERED: D5% in Water 1,000 ML IVC PRN (00:15)
[2019-06-23] MEDS ORDERED: *HR* OxyCODONE Immed Rel 5 MG TABLET PO PRN ×2 (00:15)
[2019-06-23] MEDS ORDERED: Ondansetron 4 MG/2 ML VIAL IVP PRN (00:15)
[2019-06-23] MEDS ORDERED: Naloxone 0.4 MG/ML INJ IVP PRN (00:15)
[2019-06-23] MEDS ORDERED: *HR* Dextrose 50 % in Water (Syg) 50 ML SYRINGE IVP PRN (00:15)
[2019-06-23] MEDS ORDERED: Dextrose Gel 15 GM/37.5 ML TUBE PO PRN ×2 (00:15)
[2019-06-23] MEDS ORDERED: *HR* HYDROcodone/Acet 5/325 mg TABLET PO PRN (00:15)
[2019-06-23] MEDS ORDERED: Acetaminophen 325 MG TABLET PO PRN ×2 (00:15)
[2019-06-23] MEDS: ceFAZolin 2,000 MG in 0.9 % Sodium Chloride 100 ML IVPB SCH ×2 (03:42→12:10)
[2019-06-23 03:59] LABS: Basophils % 0.3 %; Eosinophils # 0.1 K/mcL (0.0-0.6); Eosinophils % 1.5 %; Hematocrit 28.8 % (35.3-44.9); Hemoglobin 9.3 g/dL (11.5-15.4); Immature Granulocytes % 1.5 % (0-4); Lymphocytes # 1.2 K/mcL (0.6-4.6); Lymphocytes % 30.2 %; Mean Corpuscular HGB Conc 32.3 g/dL (31.6-35.5); Mean Corpuscular Hemoglobin 32.2 pg (28.0-33.3); Mean Corpuscular Volume 99.7 fL (83.0-100.0); Mean Platelet Volume 11.4 fL (9.4-12.4); Monocytes # 0.4 K/mcL (0.0-1.3); Neutrophils # 2.3 K/mcL (1.6-8.9); Nucleated Red Blood Cells 0.8 /100 WBC (0); Platelet Count 104 K/mcL (140-400); Red Blood Count 2.89 M/mcL (3.82-4.97); Red Cell Distribution Width 15.6 % (11.5-14.5); Segmented Neutrophils % 57.5 %
[2019-06-23 04:18] LABS: BUN/Creatinine Ratio 15 (6-26); Blood Urea Nitrogen 13 mg/dL (8-23); Calcium 8.4 mg/dL (8.6-10.3); Carbon Dioxide 26 mEq/L (23-29); Chloride 108 mEq/L (98-107); Glucose 292 mg/dL (70-105); Osmolality,Calculated 305 (280-300); Potassium 3.9 mEq/L (3.5-5.1); Sodium 142 mEq/L (136-145); eGFR For African Americans > 60 (> 60); eGFR For Non-African Americans > 60 (> 60)
[2019-06-23] MEDS ORDERED: Ascorbic Acid 500 MG TABLET PO SCH (09:00)
[2019-06-23] MEDS ORDERED: Cyanocobalamin (B-12) 1,000 MCG TABLET PO SCH (09:00)
[2019-06-23] MEDS ORDERED: Vitamin E 200 UNIT (90MG) CAPSULE PO SCH (09:00)
[2019-06-23] MEDS ORDERED: NON-FORMULARY MEDICATION 1 EACH EACH (Omega-3s/Dha/Epa/Fish Oil [Fish Oil Omega-3 Softgel] PO SCH (09:00)
[2019-06-23] MEDS ORDERED: (Terbinafine Hcl 250 MG) PO SCH (09:00)
[2019-06-23] MEDS ORDERED: Furosemide 40 MG TABLET PO SCH (09:00)
[2019-06-23] MEDS ORDERED: Metoprolol XL (24 HR) Succ 50 MG TAB.ER.24H PO SCH (09:00)
[2019-06-23] MEDS ORDERED: Cholecalciferol (D-3) 1,000 UNIT (25MCG) TABLET PO SCH (09:00)
[2019-06-23] MEDS: Pregabalin 50 MG CAPSULE PO SCH ×2 (09:31→15:37)
[2019-06-23] MEDS: Insulin LISPRO 300 UNITS/3 ML VIAL SQ SCH ×2 (09:32→12:11)
[2019-06-23] MEDS: *HR* HYDROcodone/Acet 5/325 mg TABLET PO PRN ×2 (09:32→15:37)
[2019-06-23 11:04] VITALS: BP 121/69
[2019-06-23] MEDS ORDERED: *HR* Metformin 500 MG TABLET PO SCH (18:00)
[2019-06-23] MEDS ORDERED: Insulin LISPRO 300 UNITS/3 ML VIAL SQ SCH (21:00)
== END 2019-06-23 16:56 | disposition home or self-care (01) | DRG 254 ==
LOC: EMEROOARM 16:59 → 2ANU 16:59 → SUATTDRO 21:44 → OBSVTOIN 06-23 02:19
PROVIDERS: ADMIT Family Medicine; ATTEND Internal Medicine

== ENCOUNTER 2019-12-05 13:47 | Observation (INO) ==
[2019-12-05] MEDS ORDERED: Isovue-370 500 ML BOTTLE IVP ONE (13:57)
[2019-12-05 14:17] LABS: Hemoglobin 12.7 g/dL (11.5-15.4); Mean Corpuscular HGB Conc 32.6 g/dL (31.6-35.5); Mean Corpuscular Hemoglobin 31.1 pg (28.0-33.3); Mean Corpuscular Volume 95.4 fL (83.0-100.0); Mean Platelet Volume 10.9 fL (9.4-12.4); Platelet Count 117 K/mcL (140-400); Red Blood Count 4.09 M/mcL (3.82-4.97); Red Cell Distribution Width 15.5 % (11.5-14.5); White Blood Count 3.8 K/mcL (4.3-11.1)
[2019-12-05 14:39] LABS: BUN/Creatinine Ratio 15 (6-26); Blood Urea Nitrogen 12 mg/dL (8-23); Carbon Dioxide 26 mEq/L (23-29); Chloride 106 mEq/L (98-107); Glucose 269 mg/dL (70-105); Osmolality,Calculated 303 (280-300); Potassium 3.4 mEq/L (3.5-5.1); Sodium 142 mEq/L (136-145); Troponin I < 0.03 ng/mL (< 0.04); eGFR For African Americans > 60 (> 60); eGFR For Non-African Americans > 60 (> 60)
[2019-12-05 15:26] LABS: INR 2.1; Prothrombin Time 23.7 Seconds (9.4-12.1)
[2019-12-05 15:28] LABS: Activated Partial Thrombo Time 47.3 Seconds (26.0-36.0)
[2019-12-05] MEDS ORDERED: Ondansetron 4 MG/2 ML VIAL IVP PRN (15:33)
[2019-12-05] MEDS ORDERED: Naloxone 0.4 MG/ML INJ IVP PRN (15:33)
[2019-12-05] MEDS ORDERED: D5% in Water 1,000 ML IVC PRN (15:39)
[2019-12-05] MEDS ORDERED: Dextrose Gel 15 GM/37.5 ML TUBE PO PRN ×2 (15:39)
[2019-12-05] MEDS ORDERED: *HR* Dextrose 50 % in Water (Vial) 50 ML VIAL IVP PRN (15:39)
[2019-12-05] MEDS: Aspirin 81 MG TAB.CHEW PO SCH (17:37)
[2019-12-05] MEDS: Insulin LISPRO 300 UNITS/3 ML VIAL SQ SCH ×2 (17:41→17:42)
[2019-12-05] MEDS ORDERED: Warfarin perPT PO PRN (18:00)
[2019-12-05] MEDS ORDERED: *HR* Warfarin 3 MG TABLET PO ONE (18:00)
[2019-12-05] MEDS: Metoprolol XL (24 HR) Succ 25 MG TAB.ER.24H PO SCH (19:49)
[2019-12-05] MEDS: Cyanocobalamin (B-12) 1,000 MCG TABLET PO SCH (19:49)
[2019-12-05] MEDS: Pregabalin 50 MG CAPSULE PO SCH (19:50)
[2019-12-05] MEDS: Insulin DETEMIR 100 UNIT/ML X5UNITS SQ SCH (20:03)
[2019-12-06 04:54] LABS: Basophils % 0.3 %; Eosinophils # 0.1 K/mcL (0.0-0.6); Eosinophils % 2.8 %; Hematocrit 37.2 % (35.3-44.9); Hemoglobin 12.2 g/dL (11.5-15.4); Immature Granulocytes % 0.6 % (0-4); Lymphocytes # 1.5 K/mcL (0.6-4.6); Lymphocytes % 41.3 %; Mean Corpuscular HGB Conc 32.8 g/dL (31.6-35.5); Mean Corpuscular Volume 94.4 fL (83.0-100.0); Mean Platelet Volume 10.3 fL (9.4-12.4); Monocytes # 0.3 K/mcL (0.0-1.3); Monocytes % 9.7 %; Neutrophils # 1.6 K/mcL (1.6-8.9); Platelet Count 117 K/mcL (140-400); Red Blood Count 3.94 M/mcL (3.82-4.97); Red Cell Distribution Width 15.3 % (11.5-14.5); Segmented Neutrophils % 45.3 %; White Blood Count 3.5 K/mcL (4.3-11.1)
[2019-12-06 04:56] LABS: Prothrombin Time 22.8 Seconds (9.4-12.1)
[2019-12-06 05:11] LABS: Chol/HDL Ratio 4.8 (0-4.9)
[2019-12-06 05:12] LABS: BUN/Creatinine Ratio 19 (6-26); Blood Urea Nitrogen 13 mg/dL (8-23); Calcium 9.1 mg/dL (8.6-10.3); Carbon Dioxide 31 mEq/L (23-29); Chloride 106 mEq/L (98-107); Glucose 174 mg/dL (70-105); Magnesium 1.4 mg/dL (1.6-2.6); Osmolality,Calculated 300 (280-300); Potassium 3.3 mEq/L (3.5-5.1); Sodium 143 mEq/L (136-145); eGFR For African Americans > 60 (> 60); eGFR For Non-African Americans > 60 (> 60)
[2019-12-06] MEDS: Acetaminophen 325 MG TABLET PO PRN ×2 (05:32→15:01)
[2019-12-06] MEDS ORDERED: Potassium Chloride Elixir 20 MEQ/15 ML UDC PO ONE (07:20)
[2019-12-06] MEDS: Metoprolol XL (24 HR) Succ 25 MG TAB.ER.24H PO SCH ×2 (08:36→21:07)
[2019-12-06] MEDS: Cyanocobalamin (B-12) 1,000 MCG TABLET PO SCH ×2 (08:36→21:07)
[2019-12-06] MEDS: Vitamin E 200 UNIT (90MG) CAPSULE PO SCH (08:36)
[2019-12-06] MEDS: Furosemide 40 MG TABLET PO SCH (08:36)
[2019-12-06] MEDS: Pregabalin 50 MG CAPSULE PO SCH ×3 (08:36→21:07)
[2019-12-06] MEDS: Aspirin 81 MG TAB.CHEW PO SCH (08:36)
[2019-12-06] MEDS: Ascorbic Acid 500 MG TABLET PO SCH (08:36)
[2019-12-06] MEDS: Cholecalciferol (D-3) 1,000 UNIT (25MCG) TABLET PO SCH (08:37)
[2019-12-06] MEDS: Insulin LISPRO 300 UNITS/3 ML VIAL SQ SCH ×6 (08:38→17:09)
[2019-12-06 11:30] LABS: Estimated Average Glucose 180 mg/dl
[2019-12-06] MEDS ORDERED: Perflutren Lipid Microsphere 1.3 ML in 0.9 % Sodium Chloride 8.7 ML IVP PRN (17:54)
[2019-12-06] MEDS ORDERED: *HR* Warfarin 3 MG TABLET PO ONE (18:10)
[2019-12-06] MEDS: Insulin DETEMIR 100 UNIT/ML X5UNITS SQ SCH (21:04)
[2019-12-07 04:05] LABS: Basophils % 0.5 %; Eosinophils # 0.1 K/mcL (0.0-0.6); Eosinophils % 2.7 %; Hematocrit 36.2 % (35.3-44.9); Immature Granulocytes % 0.8 % (0-4); Lymphocytes # 1.3 K/mcL (0.6-4.6); Lymphocytes % 34.4 %; Mean Corpuscular HGB Conc 33.1 g/dL (31.6-35.5); Mean Corpuscular Hemoglobin 30.9 pg (28.0-33.3); Mean Corpuscular Volume 93.3 fL (83.0-100.0); Mean Platelet Volume 10.5 fL (9.4-12.4); Monocytes # 0.4 K/mcL (0.0-1.3); Monocytes % 11.4 %; Neutrophils # 1.9 K/mcL (1.6-8.9); Platelet Count 117 K/mcL (140-400); Red Blood Count 3.88 M/mcL (3.82-4.97); Red Cell Distribution Width 15.2 % (11.5-14.5); Segmented Neutrophils % 50.2 %; White Blood Count 3.7 K/mcL (4.3-11.1)
[2019-12-07 04:10] LABS: INR 1.7; Prothrombin Time 19.8 Seconds (9.4-12.1)
[2019-12-07 04:24] LABS: BUN/Creatinine Ratio 21 (6-26); Blood Urea Nitrogen 16 mg/dL (8-23); Calcium 8.9 mg/dL (8.6-10.3); Carbon Dioxide 30 mEq/L (23-29); Chloride 104 mEq/L (98-107); Glucose 215 mg/dL (70-105); Osmolality,Calculated 302 (280-300); Potassium 3.4 mEq/L (3.5-5.1); Sodium 142 mEq/L (136-145); eGFR For African Americans > 60 (> 60); eGFR For Non-African Americans > 60 (> 60)
[2019-12-07] MEDS: Pregabalin 50 MG CAPSULE PO SCH (07:53)
[2019-12-07] MEDS: Vitamin E 200 UNIT (90MG) CAPSULE PO SCH (07:53)
[2019-12-07] MEDS: Ascorbic Acid 500 MG TABLET PO SCH (07:53)
[2019-12-07] MEDS: Cholecalciferol (D-3) 1,000 UNIT (25MCG) TABLET PO SCH (07:53)
[2019-12-07] MEDS: Aspirin 81 MG TAB.CHEW PO SCH (07:53)
[2019-12-07] MEDS: Cyanocobalamin (B-12) 1,000 MCG TABLET PO SCH (07:53)
[2019-12-07] MEDS: Insulin LISPRO 300 UNITS/3 ML VIAL SQ SCH ×4 (07:54→12:32)
[2019-12-07] MEDS: Furosemide 40 MG TABLET PO SCH (07:54)
[2019-12-07] MEDS: Metoprolol XL (24 HR) Succ 25 MG TAB.ER.24H PO SCH (07:54)
[2019-12-07 08:15] LABS: Magnesium 1.8 mg/dL (1.6-2.6)
[2019-12-07] MEDS ORDERED: predniSONE 20 MG TABLET PO SCH (09:00)
[2019-12-07 11:54] VITALS: BP 143/79
[2019-12-07] MEDS ORDERED: *HR* Warfarin 3 MG TABLET PO ONE (18:00)
== END 2019-12-07 17:19 | disposition home or self-care (01) ==
LOC: EMEROOARM 13:47 → 2ANU 13:47 → SUATTDRO 15:22 → 2ANU 16:23
PROVIDERS: ADMIT Student in an Organized Health Care Education/Training Program; ATTEND Internal Medicine

== ENCOUNTER 2020-08-07 10:37 | Inpatient (IN) ==
[2020-08-07] MEDS ORDERED: methylPREDNISolone 125 MG/2 ML VIAL IVP ONE (11:28)
[2020-08-07] MEDS ORDERED: Ipratropium/Albuterol Neb 3 ML IH ONE (11:28)
[2020-08-07] MEDS ORDERED: Azithromycin 500 MG in 0.9 % Sodium Chloride 250 ML IVPB ONE (11:50)
[2020-08-07] MEDS ORDERED: cefTRIAXone 1,000 MG in 0.9 % Sodium Chloride Mini Bag 100 ML IVPB ONE (11:50)
[2020-08-07 12:11] LABS: Hemoglobin 11.6 g/dL (11.5-15.4); Immature Granulocytes % 0.3 % (0-4); Mean Corpuscular Volume 99.4 fL (83.0-100.0)
[2020-08-07 12:13] LABS: Hematocrit 35.4 % (35.3-44.9); Immature Platelets 3.8 % (1.1-6.1); Lymphocytes # 0.7 K/mcL (0.6-4.6); Lymphocytes % 19.8 %; Mean Corpuscular HGB Conc 32.8 g/dL (31.6-35.5); Mean Corpuscular Hemoglobin 32.6 pg (28.0-33.3); Mean Platelet Volume 11.5 fL (9.4-12.4); Monocytes # 0.4 K/mcL (0.0-1.3); Monocytes % 12.6 %; Red Blood Count 3.56 M/mcL (3.82-4.97); Red Cell Distribution Width 14.5 % (11.5-14.5); Segmented Neutrophils % 67.3 %; White Blood Count 3.3 K/mcL (4.3-11.1)
[2020-08-07 12:19] LABS: INR 2.2; Neutrophils # 2.2 K/mcL (1.6-8.9); Platelet Count 77 K/mcL (140-400)
[2020-08-07 12:32] LABS: BUN/Creatinine Ratio 18 (6-26); Blood Urea Nitrogen 21 mg/dL (8-23); Calcium 7.9 mg/dL (8.6-10.3); Carbon Dioxide 27 mEq/L (23-29); Chloride 106 mEq/L (98-107); Glucose 160 mg/dL (70-105); Osmolality,Calculated 298 (280-300); Potassium 3.7 mEq/L (3.5-5.1); Sodium 141 mEq/L (136-145); eGFR For African Americans 56 (> 60); eGFR For Non-African Americans 47 (> 60)
[2020-08-07 12:33] LABS: Troponin I < 0.03 ng/mL (< 0.04)
[2020-08-07 13:14] LABS: Adenovirus Not Detected (Not Detect); Bordetella Pertussis Not Detected (Not Detect); Chlamydophila pneumoniae Not Detected (Not Detect); Coronavirus 229E Not Detected (Not Detect); Coronavirus HKU1 Not Detected (Not Detect); Coronavirus NL63 Not Detected (Not Detect); Coronavirus OC43 Not Detected (Not Detect); Human Metapneumovirus Not Detected (Not Detect); Human Rhinovirus/Enterovirus Not Detected (Not Detect); Influenza A Subtype 2009 H1 Not Detected (Not Detect); Influenza B Not Detected (Not Detect); Mycoplasma pneumoniae Not Detected (Not Detect); Parainfluenza Virus 1 Not Detected (Not Detect); Parainfluenza Virus 2 Not Detected (Not Detect); Parainfluenza Virus 3 Not Detected (Not Detect); Parainfluenza Virus 4 Not Detected (Not Detect); Respiratory Syncytial Virus Not Detected (Not Detect)
[2020-08-07 13:15] LABS: SARS-CoV-2 DETECTED (Not Detect)
[2020-08-07] MEDS ORDERED: Ondansetron 4 MG/2 ML VIAL IVP PRN (14:16)
[2020-08-07] MEDS ORDERED: Naloxone 0.4 MG/ML INJ IVP PRN (14:16)
[2020-08-07 14:38] LABS: C-Reactive Protein 132 mg/L (Less than 10); Lactate Dehydrogenase 357 Units/L (140-271)
[2020-08-07 14:56] LABS: Ferritin 195 ng/mL (10-120)
[2020-08-07] MEDS ORDERED: D5% in Water 1,000 ML IVC PRN (15:12)
[2020-08-07] MEDS ORDERED: Dextrose Gel 15 GM/37.5 ML TUBE PO PRN ×2 (15:12)
[2020-08-07] MEDS ORDERED: *HR* Dextrose 50 % in Water (Vial) 50 ML VIAL IVP PRN (15:12)
[2020-08-07] MEDS ORDERED: Insulin LISPRO 300 UNITS/3 ML VIAL SUBQ SCH (16:30)
[2020-08-07 18:48] LABS: Albumin 3.7 g/dL (3.5-5.7); Albumin/Globulin Ratio 1.5 (1.1-2.2); Bilirubin,Indirect 0.3 mg/dL (0.0-1.0); Bilirubin,Total 0.3 mg/dL (0.3-1.0); Globulin 2.4 g/dL (2.4-3.5); Total Protein 6.1 g/dL (6.4-8.9)
[2020-08-07] MEDS ORDERED: Insulin DETEMIR 100 UNIT/ML X5UNITS SUBQ SCH (21:00)
[2020-08-08] MEDS: Acetaminophen 325 MG TABLET PO PRN (01:38)
[2020-08-08] MEDS: Melatonin 3 MG TABLET PO PRN (01:43)
[2020-08-08 05:29] LABS: Hematocrit 35.1 % (35.3-44.9)
[2020-08-08 05:31] LABS: Hemoglobin 11.3 g/dL (11.5-15.4); Immature Granulocytes % 0.7 % (0-4); Immature Platelets 5.4 % (1.1-6.1); Lymphocytes # 0.4 K/mcL (0.6-4.6); Lymphocytes % 12.5 %; Mean Corpuscular HGB Conc 32.2 g/dL (31.6-35.5); Mean Corpuscular Hemoglobin 32.4 pg (28.0-33.3); Mean Corpuscular Volume 100.6 fL (83.0-100.0); Mean Platelet Volume 11.6 fL (9.4-12.4); Monocytes # 0.2 K/mcL (0.0-1.3); Monocytes % 7.8 %; Red Blood Count 3.49 M/mcL (3.82-4.97)
[2020-08-08 05:33] LABS: Neutrophils # 2.4 K/mcL (1.6-8.9); Platelet Count 62 K/mcL (140-400)
[2020-08-08 05:50] LABS: Potassium 4.2 mEq/L (3.5-5.1)
[2020-08-08] MEDS ORDERED: Insulin LISPRO 300 UNITS/3 ML VIAL SUBQ ONE (06:24)
[2020-08-08] MEDS ORDERED: Remdesivir 200 MG in 0.9 % Sodium Chloride 100 ML IVPB ONE (08:00)
[2020-08-08] MEDS ORDERED: Insulin LISPRO 300 UNITS/3 ML VIAL SUBQ SCH ×2 (08:00→18:00)
[2020-08-08] MEDS: cefTRIAXone 1,000 MG in Water for inj. (sterile) 10 ML IVP SCH (08:49)
[2020-08-08] MEDS: Azithromycin 250 MG TABLET PO SCH (08:51)
[2020-08-08] MEDS: Pregabalin 50 MG CAPSULE PO SCH ×3 (08:51→22:28)
[2020-08-08] MEDS ORDERED: Furosemide 40 MG TABLET PO SCH (09:00)
[2020-08-08] MEDS ORDERED: NON-FORMULARY MEDICATION 1 EACH EACH (Insulin Regular, Human [Humulin R U-500 Kwikpen] 500 SQ SCH ×3 (09:00→18:00)
[2020-08-08] MEDS: Insulin LISPRO 300 UNITS/3 ML VIAL SUBQ SCH ×3 (09:04→16:14)
[2020-08-08] MEDS ORDERED: *HR* Enoxaparin 120 MG/0.8 ML SYRINGE SQ ONE (10:27)
[2020-08-08] MEDS: *HR* OxyCODONE Immed Rel 5 MG TABLET PO PRN ×2 (11:24→17:24)
[2020-08-08] MEDS ORDERED: *HR* Insulin Regular U-500 500 UNIT/ML SUBQ SCH ×2 (13:00→18:00)
[2020-08-08] MEDS: Nystatin POWDER 30 GM BOTTLE TP SCH ×2 (13:01→22:29)
[2020-08-08] MEDS ORDERED: *HR* Warfarin 3 MG TABLET PO ONE (18:00)
[2020-08-08] MEDS ORDERED: Warfarin perPT PO PRN (18:00)
[2020-08-08] MEDS: rOPINIRole 1 MG TABLET PO SCH (22:28)
[2020-08-08] MEDS: traZODone 50 MG TABLET PO SCH (22:28)
[2020-08-09 03:16] LABS: Hematocrit 40.8 % (35.3-44.9); Hemoglobin 13.1 g/dL (11.5-15.4); Immature Platelets 7.5 % (1.1-6.1); Mean Corpuscular HGB Conc 32.1 g/dL (31.6-35.5); Mean Corpuscular Hemoglobin 32.3 pg (28.0-33.3); Mean Corpuscular Volume 100.7 fL (83.0-100.0); Mean Platelet Volume 11.9 fL (9.4-12.4); Red Blood Count 4.05 M/mcL (3.82-4.97); Red Cell Distribution Width 14.4 % (11.5-14.5); White Blood Count 6.9 K/mcL (4.3-11.1)
[2020-08-09 03:21] LABS: INR 2.7; Prothrombin Time 30.4 Seconds (9.4-12.1)
[2020-08-09 03:34] LABS: Alanine Aminotransferase 34 Units/L (7-52); Albumin 3.8 g/dL (3.5-5.7); Albumin/Globulin Ratio 1.3 (1.1-2.2); Alkaline Phosphatase 103 Units/L (34-104); Aspartate Amino Transferase 44 Units/L (13-39); BUN/Creatinine Ratio 41 (6-26); Bilirubin,Indirect 0.3 mg/dL (0.0-1.0); Bilirubin,Total 0.3 mg/dL (0.3-1.0); Blood Urea Nitrogen 43 mg/dL (8-23); Calcium 9.2 mg/dL (8.6-10.3); Carbon Dioxide 28 mEq/L (23-29); Chloride 105 mEq/L (98-107); Globulin 2.9 g/dL (2.4-3.5); Glucose 248 mg/dL (70-105); Osmolality,Calculated 313 (280-300); Potassium 5.1 mEq/L (3.5-5.1); Sodium 142 mEq/L (136-145); Total Protein 6.7 g/dL (6.4-8.9); eGFR For African Americans > 60 (> 60); eGFR For Non-African Americans 54 (> 60)
[2020-08-09] MEDS: Insulin LISPRO 300 UNITS/3 ML VIAL SUBQ SCH ×4 (07:07→22:06)
[2020-08-09] MEDS: *HR* Insulin Regular U-500 500 UNIT/ML SUBQ SCH ×2 (08:27→11:36)
[2020-08-09] MEDS ORDERED: Haloperidol Lactate 5 MG/ML VIAL IVP ONE (09:19)
[2020-08-09] MEDS: Azithromycin 250 MG TABLET PO SCH (09:40)
[2020-08-09] MEDS: Remdesivir 100 MG in 0.9 % Sodium Chloride 100 ML IVPB SCH (09:41)
[2020-08-09] MEDS: Pregabalin 50 MG CAPSULE PO SCH ×2 (09:49→22:07)
[2020-08-09] MEDS: Nystatin POWDER 30 GM BOTTLE TP SCH ×2 (09:49→22:08)
[2020-08-09] MEDS: Dexmedetomidine HCl 400 MCG/100 ML MLS IVC SCH (10:13)
[2020-08-09] MEDS: cefTRIAXone 2,000 MG in Water for inj. (sterile) 20 ML IVP SCH (10:15)
[2020-08-09 11:18] LABS: C-Reactive Protein 67 mg/L (Less than 10)
[2020-08-09] MEDS: Furosemide 40 MG/4 ML VIAL IVP SCH ×2 (12:27→22:07)
[2020-08-09] MEDS: Ipratropium 1 PUFF INHALER IH SCH ×4 (14:50→23:43)
[2020-08-09] MEDS ORDERED: *HR* Insulin Regular U-500 500 UNIT/ML SUBQ SCH (18:00)
[2020-08-09] MEDS ORDERED: *HR* Warfarin 2 MG TABLET PO ONE (18:00)
[2020-08-09] MEDS ORDERED: Insulin DETEMIR 100 UNIT/ML X5UNITS SUBQ SCH (21:00)
[2020-08-09] MEDS: traZODone 50 MG TABLET PO SCH (22:06)
[2020-08-09] MEDS: rOPINIRole 1 MG TABLET PO SCH (22:07)
[2020-08-09] MEDS: Melatonin 3 MG TABLET PO PRN (22:07)
[2020-08-10] MEDS: cefTRIAXone 1,000 MG in Water for inj. (sterile) 10 ML IVP SCH (03:05)
[2020-08-10] MEDS: Ipratropium 1 PUFF INHALER IH SCH ×6 (03:29→23:39)
[2020-08-10] MEDS: Insulin LISPRO 300 UNITS/3 ML VIAL SUBQ SCH ×5 (03:35→19:53)
[2020-08-10 05:54] LABS: Red Cell Distribution Width 14.6 % (11.5-14.5)
[2020-08-10 05:56] LABS: Basophils % 0.3 %; Hematocrit 35.4 % (35.3-44.9); Hemoglobin 11.1 g/dL (11.5-15.4); Immature Granulocytes % 0.7 % (0-4); Immature Platelets 6.5 % (1.1-6.1); Lymphocytes # 0.4 K/mcL (0.6-4.6); Lymphocytes % 14.1 %; Mean Corpuscular HGB Conc 31.4 g/dL (31.6-35.5); Mean Corpuscular Hemoglobin 31.8 pg (28.0-33.3); Mean Corpuscular Volume 101.4 fL (83.0-100.0); Mean Platelet Volume 11.6 fL (9.4-12.4); Monocytes # 0.2 K/mcL (0.0-1.3); Monocytes % 6.7 %; Red Blood Count 3.49 M/mcL (3.82-4.97); Segmented Neutrophils % 78.2 %
[2020-08-10 06:01] LABS: Neutrophils # 2.4 K/mcL (1.6-8.9); Platelet Count 73 K/mcL (140-400)
[2020-08-10 07:26] LABS: Albumin 3.2 g/dL (3.5-5.7); Albumin/Globulin Ratio 1.3 (1.1-2.2); Bilirubin,Direct 0.1 mg/dL (0.0-0.2); Bilirubin,Indirect 0.2 mg/dL (0.0-1.0); Bilirubin,Total 0.3 mg/dL (0.3-1.0); Calcium 8.3 mg/dL (8.6-10.3); Globulin 2.5 g/dL (2.4-3.5); Potassium 4.9 mEq/L (3.5-5.1); Total Protein 5.7 g/dL (6.4-8.9)
[2020-08-10] MEDS: Azithromycin 250 MG TABLET PO SCH (08:08)
[2020-08-10] MEDS: Pregabalin 50 MG CAPSULE PO SCH ×2 (08:08→19:51)
[2020-08-10] MEDS: cefTRIAXone 2,000 MG in Water for inj. (sterile) 20 ML IVP SCH (08:10)
[2020-08-10] MEDS: Furosemide 40 MG/4 ML VIAL IVP SCH (08:18)
[2020-08-10] MEDS: Nystatin POWDER 30 GM BOTTLE TP SCH ×2 (08:32→19:53)
[2020-08-10] MEDS: Remdesivir 100 MG in 0.9 % Sodium Chloride 100 ML IVPB SCH (09:31)
[2020-08-10 10:20] LABS: INR 3.7; Prothrombin Time 40.9 Seconds (9.4-12.1)
[2020-08-10] MEDS ORDERED: Furosemide 40 MG/4 ML VIAL IVP SCH (11:00)
[2020-08-10] MEDS ORDERED: INSULIN HUMAN REGULAR IV ONE (11:29)
[2020-08-10] MEDS ORDERED: SODIUM CHLORIDE 0.9% IV ONE (11:29)
[2020-08-10] MEDS: Insulin DETEMIR 100 UNIT/ML X5UNITS SUBQ SCH ×2 (11:44→20:05)
[2020-08-10] MEDS: rOPINIRole 1 MG TABLET PO SCH (19:51)
[2020-08-10] MEDS: traZODone 50 MG TABLET PO SCH (19:51)
[2020-08-11] MEDS: Melatonin 3 MG TABLET PO PRN (00:24)
[2020-08-11] MEDS: Dexmedetomidine HCl 400 MCG/100 ML MLS IVC SCH (03:34)
[2020-08-11] MEDS: Ipratropium 1 PUFF INHALER IH SCH ×6 (04:38→23:59)
[2020-08-11 05:48] LABS: Red Cell Distribution Width 14.1 % (11.5-14.5)
[2020-08-11 05:49] LABS: Hematocrit 36.6 % (35.3-44.9); Hemoglobin 11.6 g/dL (11.5-15.4); Immature Platelets 8.3 % (1.1-6.1); Mean Corpuscular HGB Conc 31.7 g/dL (31.6-35.5); Mean Corpuscular Hemoglobin 31.8 pg (28.0-33.3); Mean Corpuscular Volume 100.3 fL (83.0-100.0); Mean Platelet Volume 12.6 fL (9.4-12.4); Red Blood Count 3.65 M/mcL (3.82-4.97); White Blood Count 5.2 K/mcL (4.3-11.1)
[2020-08-11 06:06] LABS: INR 4.9; Prothrombin Time 54.7 Seconds (9.4-12.1)
[2020-08-11 06:21] LABS: Alanine Aminotransferase 33 Units/L (7-52); Albumin 3.3 g/dL (3.5-5.7); Albumin/Globulin Ratio 1.3 (1.1-2.2); Alkaline Phosphatase 96 Units/L (34-104); Aspartate Amino Transferase 34 Units/L (13-39); BUN/Creatinine Ratio 49 (6-26); Bilirubin,Direct 0.1 mg/dL (0.0-0.2); Bilirubin,Indirect 0.3 mg/dL (0.0-1.0); Bilirubin,Total 0.4 mg/dL (0.3-1.0); Blood Urea Nitrogen 47 mg/dL (8-23); Calcium 8.9 mg/dL (8.6-10.3); Carbon Dioxide 30 mEq/L (23-29); Chloride 104 mEq/L (98-107); Globulin 2.5 g/dL (2.4-3.5); Glucose 238 mg/dL (70-105); Osmolality,Calculated 310 (280-300); Potassium 4.3 mEq/L (3.5-5.1); Sodium 140 mEq/L (136-145); Total Protein 5.8 g/dL (6.4-8.9); eGFR For African Americans > 60 (> 60); eGFR For Non-African Americans 59 (> 60)
[2020-08-11] MEDS: Furosemide 20 MG/2 ML VIAL IVP SCH ×2 (08:15→21:04)
[2020-08-11] MEDS: cefTRIAXone 2,000 MG in Water for inj. (sterile) 20 ML IVP SCH (08:16)
[2020-08-11] MEDS: Insulin LISPRO 300 UNITS/3 ML VIAL SUBQ SCH ×4 (08:17→21:04)
[2020-08-11] MEDS: Remdesivir 100 MG in 0.9 % Sodium Chloride 100 ML IVPB SCH (08:17)
[2020-08-11] MEDS: Pregabalin 50 MG CAPSULE PO SCH ×2 (08:19→21:02)
[2020-08-11] MEDS: Azithromycin 250 MG TABLET PO SCH (08:19)
[2020-08-11] MEDS: Nystatin POWDER 30 GM BOTTLE TP SCH ×2 (08:19→21:05)
[2020-08-11] MEDS ORDERED: Insulin DETEMIR 100 UNIT/ML X5UNITS SUBQ SCH (09:00)
[2020-08-11] MEDS ORDERED: Insulin Human Regular 10 UNIT in 0.9 % Sodium Chloride 10 ML IV ONE (14:39)
[2020-08-11] MEDS ORDERED: *HR* Phytonadione 10 MG/ML AMPUL ONE (15:17)
[2020-08-11] MEDS ORDERED: *HR* Phytonadione 10 MG/ML AMPUL IVPB ONE (15:21)
[2020-08-11] MEDS: *HR* OxyCODONE Immed Rel 5 MG TABLET PO PRN (16:51)
[2020-08-11] MEDS: rOPINIRole 1 MG TABLET PO SCH (21:02)
[2020-08-11] MEDS: traZODone 50 MG TABLET PO SCH (21:03)
[2020-08-11] MEDS: Insulin DETEMIR 100 UNIT/ML X5UNITS SUBQ SCH (21:04)
[2020-08-12] MEDS ORDERED: *HR* LORazepam 2 MG/ML VIAL IVP ONE (01:06)
[2020-08-12 01:51] LABS: Basophils % 0.3 %; Monocytes % 5.4 %; Red Cell Distribution Width 13.8 % (11.5-14.5)
[2020-08-12 01:53] LABS: Hematocrit 38.8 % (35.3-44.9); Hemoglobin 12.4 g/dL (11.5-15.4); Immature Granulocytes % 2.2 % (0-4); Immature Platelets 8.9 % (1.1-6.1); Lymphocytes # 0.6 K/mcL (0.6-4.6); Lymphocytes % 10.2 %; Mean Corpuscular Hemoglobin 31.5 pg (28.0-33.3); Mean Corpuscular Volume 98.5 fL (83.0-100.0); Mean Platelet Volume 12.2 fL (9.4-12.4); Monocytes # 0.3 K/mcL (0.0-1.3); Red Blood Count 3.94 M/mcL (3.82-4.97); Segmented Neutrophils % 81.9 %; White Blood Count 5.8 K/mcL (4.3-11.1)
[2020-08-12 01:56] LABS: Neutrophils # 4.8 K/mcL (1.6-8.9); Platelet Count 76 K/mcL (140-400)
[2020-08-12 01:59] LABS: INR 1.4; Prothrombin Time 16.1 Seconds (9.4-12.1)
[2020-08-12] MEDS: Dexmedetomidine HCl 400 MCG/100 ML MLS IVC SCH ×2 (02:05→17:38)
[2020-08-12 02:08] LABS: Albumin 3.4 g/dL (3.5-5.7); Albumin/Globulin Ratio 1.3 (1.1-2.2); Bilirubin,Direct 0.2 mg/dL (0.0-0.2); Bilirubin,Indirect 0.4 mg/dL (0.0-1.0); Bilirubin,Total 0.6 mg/dL (0.3-1.0); Globulin 2.7 g/dL (2.4-3.5); Total Protein 6.1 g/dL (6.4-8.9)
[2020-08-12 02:09] LABS: BUN/Creatinine Ratio 43 (6-26); Blood Urea Nitrogen 36 mg/dL (8-23); Carbon Dioxide 28 mEq/L (23-29); Chloride 102 mEq/L (98-107); Glucose 347 mg/dL (70-105); Osmolality,Calculated 312 (280-300); Potassium 4.1 mEq/L (3.5-5.1); Sodium 140 mEq/L (136-145); eGFR For African Americans > 60 (> 60); eGFR For Non-African Americans > 60 (> 60)
[2020-08-12] MEDS: Ipratropium 1 PUFF INHALER IH SCH ×6 (04:14→23:08)
[2020-08-12] MEDS ORDERED: *HR* Heparin 5,000 UNIT/ML VIAL IVP PRN (07:48)
[2020-08-12] MEDS ORDERED: *HR* Heparin 5,000 UNIT/ML VIAL IVP ONE (07:48)
[2020-08-12] MEDS: Remdesivir 100 MG in 0.9 % Sodium Chloride 100 ML IVPB SCH (09:28)
[2020-08-12] MEDS: cefTRIAXone 2,000 MG in Water for inj. (sterile) 20 ML IVP SCH (09:28)
[2020-08-12] MEDS: Azithromycin 250 MG TABLET PO SCH (09:29)
[2020-08-12] MEDS: Pregabalin 50 MG CAPSULE PO SCH ×2 (09:29→22:23)
[2020-08-12] MEDS: Furosemide 20 MG/2 ML VIAL IVP SCH ×2 (09:31→22:26)
[2020-08-12] MEDS: Nystatin POWDER 30 GM BOTTLE TP SCH ×2 (10:16→22:26)
[2020-08-12] MEDS: Insulin DETEMIR 100 UNIT/ML X5UNITS SUBQ SCH ×2 (10:17→22:24)
[2020-08-12] MEDS: Insulin LISPRO 300 UNITS/3 ML VIAL SUBQ SCH ×4 (10:18→22:25)
[2020-08-12] MEDS: Heparin 25,000UNIT/250ML 1/2NS 25,000 UNIT/250 ML IV.SOLN IVC SCH (11:36)
[2020-08-12] MEDS: traZODone 50 MG TABLET PO SCH (22:23)
[2020-08-12] MEDS: rOPINIRole 1 MG TABLET PO SCH (22:24)
[2020-08-13] MEDS: Ipratropium 1 PUFF INHALER IH SCH ×5 (04:15→20:38)
[2020-08-13 04:33] LABS: Hematocrit 38.6 % (35.3-44.9)
[2020-08-13 04:35] LABS: Hemoglobin 12.4 g/dL (11.5-15.4); Immature Platelets 10.7 % (1.1-6.1); Mean Corpuscular HGB Conc 32.1 g/dL (31.6-35.5); Mean Corpuscular Hemoglobin 31.8 pg (28.0-33.3); Mean Platelet Volume 12.4 fL (9.4-12.4); Red Blood Count 3.9 M/mcL (3.82-4.97); White Blood Count 6.1 K/mcL (4.3-11.1)
[2020-08-13 04:48] LABS: INR 1.3; Prothrombin Time 14.7 Seconds (9.4-12.1)
[2020-08-13 04:52] LABS: Albumin 3.4 g/dL (3.5-5.7); Albumin/Globulin Ratio 1.4 (1.1-2.2); Bilirubin,Indirect 0.6 mg/dL (0.0-1.0); Bilirubin,Total 0.6 mg/dL (0.3-1.0); Globulin 2.4 g/dL (2.4-3.5); Total Protein 5.8 g/dL (6.4-8.9)
[2020-08-13 04:53] LABS: BUN/Creatinine Ratio 37 (6-26); Blood Urea Nitrogen 33 mg/dL (8-23); Calcium 8.9 mg/dL (8.6-10.3); Carbon Dioxide 32 mEq/L (23-29); Chloride 100 mEq/L (98-107); Glucose 286 mg/dL (70-105); Osmolality,Calculated 306 (280-300); Potassium 4.2 mEq/L (3.5-5.1); Sodium 139 mEq/L (136-145); eGFR For African Americans > 60 (> 60); eGFR For Non-African Americans > 60 (> 60)
[2020-08-13] MEDS: Furosemide 20 MG/2 ML VIAL IVP SCH ×2 (08:52→20:55)
[2020-08-13] MEDS: Pregabalin 50 MG CAPSULE PO SCH ×2 (08:54→20:57)
[2020-08-13] MEDS: Insulin LISPRO 300 UNITS/3 ML VIAL SUBQ SCH ×4 (08:57→20:58)
[2020-08-13] MEDS: Nystatin POWDER 30 GM BOTTLE TP SCH ×2 (08:57→20:57)
[2020-08-13] MEDS: Insulin DETEMIR 100 UNIT/ML X5UNITS SUBQ SCH ×2 (08:58→20:56)
[2020-08-13] MEDS: Heparin 25,000UNIT/250ML 1/2NS 25,000 UNIT/250 ML IV.SOLN IVC SCH (08:58)
[2020-08-13] MEDS: Acetaminophen 325 MG TABLET PO PRN (18:27)
[2020-08-13] MEDS: rOPINIRole 1 MG TABLET PO SCH (20:57)
[2020-08-13] MEDS: traZODone 50 MG TABLET PO SCH (20:57)
[2020-08-14] MEDS: Ipratropium 1 PUFF INHALER IH SCH ×7 (00:28→23:15)
[2020-08-14 01:45] LABS: Heparin anti-factor XA UFH 0.32 IU/mL (0.30-0.70); INR 1.1
[2020-08-14 05:57] LABS: Basophils % 0.5 %; Eosinophils % 0.2 %; Hematocrit 36.2 % (35.3-44.9); Hemoglobin 11.8 g/dL (11.5-15.4); Immature Granulocytes % 4.5 % (0-4); Immature Platelets 11.3 % (1.1-6.1); Lymphocytes # 0.7 K/mcL (0.6-4.6); Lymphocytes % 12.7 %; Mean Corpuscular HGB Conc 32.6 g/dL (31.6-35.5); Mean Corpuscular Hemoglobin 31.7 pg (28.0-33.3); Mean Corpuscular Volume 97.3 fL (83.0-100.0); Mean Platelet Volume 12.1 fL (9.4-12.4); Monocytes # 0.2 K/mcL (0.0-1.3); Monocytes % 2.9 %; Neutrophils # 4.6 K/mcL (1.6-8.9); Platelet Count 78 K/mcL (140-400); Red Blood Count 3.72 M/mcL (3.82-4.97); Red Cell Distribution Width 13.7 % (11.5-14.5); Segmented Neutrophils % 79.2 %; White Blood Count 5.8 K/mcL (4.3-11.1)
[2020-08-14 06:12] LABS: BUN/Creatinine Ratio 42 (6-26); Blood Urea Nitrogen 31 mg/dL (8-23); Calcium 9.5 mg/dL (8.6-10.3); Carbon Dioxide 36 mEq/L (23-29); Chloride 101 mEq/L (98-107); Glucose 173 mg/dL (70-105); Osmolality,Calculated 305 (280-300); Sodium 142 mEq/L (136-145); eGFR For African Americans > 60 (> 60); eGFR For Non-African Americans > 60 (> 60)
[2020-08-14] MEDS: Heparin 25,000UNIT/250ML 1/2NS 25,000 UNIT/250 ML IV.SOLN IVC SCH ×2 (07:17→16:50)
[2020-08-14] MEDS: Dexmedetomidine HCl 400 MCG/100 ML MLS IVC SCH (07:17)
[2020-08-14] MEDS: Insulin LISPRO 300 UNITS/3 ML VIAL SUBQ SCH ×4 (08:25→20:58)
[2020-08-14] MEDS: Pregabalin 50 MG CAPSULE PO SCH ×2 (08:26→20:56)
[2020-08-14] MEDS: Insulin DETEMIR 100 UNIT/ML X5UNITS SUBQ SCH ×2 (08:27→20:57)
[2020-08-14] MEDS: Furosemide 20 MG/2 ML VIAL IVP SCH (08:27)
[2020-08-14] MEDS: Nystatin POWDER 30 GM BOTTLE TP SCH ×2 (08:28→20:59)
[2020-08-14] MEDS: rOPINIRole 1 MG TABLET PO SCH (20:57)
[2020-08-14] MEDS: Acetaminophen 325 MG TABLET PO PRN (20:57)
[2020-08-14] MEDS: traZODone 50 MG TABLET PO SCH (20:57)
[2020-08-15 01:12] LABS: Mean Corpuscular Hemoglobin 31.8 pg (28.0-33.3)
[2020-08-15 01:13] LABS: Hematocrit 35.6 % (35.3-44.9); Hemoglobin 11.7 g/dL (11.5-15.4); Immature Platelets 13.6 % (1.1-6.1); Mean Corpuscular HGB Conc 32.9 g/dL (31.6-35.5); Mean Corpuscular Volume 96.7 fL (83.0-100.0); Mean Platelet Volume 12.7 fL (9.4-12.4); Red Blood Count 3.68 M/mcL (3.82-4.97); Red Cell Distribution Width 13.5 % (11.5-14.5)
[2020-08-15 01:28] LABS: BUN/Creatinine Ratio 39 (6-26); Blood Urea Nitrogen 29 mg/dL (8-23); Calcium 9.4 mg/dL (8.6-10.3); Carbon Dioxide 32 mEq/L (23-29); Chloride 98 mEq/L (98-107); Glucose 282 mg/dL (70-105); Osmolality,Calculated 300 (280-300); Sodium 137 mEq/L (136-145); eGFR For African Americans > 60 (> 60); eGFR For Non-African Americans > 60 (> 60)
[2020-08-15] MEDS: Ipratropium 1 PUFF INHALER IH SCH ×6 (03:49→23:36)
[2020-08-15] MEDS: Heparin 25,000UNIT/250ML 1/2NS 25,000 UNIT/250 ML IV.SOLN IVC SCH (06:35)
[2020-08-15] MEDS: Pregabalin 50 MG CAPSULE PO SCH ×2 (08:34→21:46)
[2020-08-15] MEDS: Furosemide 20 MG TABLET PO SCH (08:34)
[2020-08-15] MEDS: Insulin DETEMIR 100 UNIT/ML X5UNITS SUBQ SCH ×2 (08:34→21:45)
[2020-08-15] MEDS: Insulin LISPRO 300 UNITS/3 ML VIAL SUBQ SCH ×4 (08:35→21:57)
[2020-08-15] MEDS: Nystatin POWDER 30 GM BOTTLE TP SCH ×2 (08:35→22:04)
[2020-08-15 14:00] LABS: Heparin anti-factor XA UFH 1.81 IU/mL (0.30-0.70)
[2020-08-15] MEDS: traZODone 50 MG TABLET PO SCH (21:46)
[2020-08-15] MEDS: rOPINIRole 1 MG TABLET PO SCH (21:46)
[2020-08-16] MEDS: *HR* Heparin 5,000 UNIT/ML VIAL IVP PRN (02:20)
[2020-08-16 02:37] LABS: Hematocrit 34.1 % (35.3-44.9); Mean Corpuscular HGB Conc 32.3 g/dL (31.6-35.5); Mean Corpuscular Hemoglobin 31.8 pg (28.0-33.3); Mean Corpuscular Volume 98.6 fL (83.0-100.0); Mean Platelet Volume 13.1 fL (9.4-12.4); Platelet Count 69 K/mcL (140-400); Red Blood Count 3.46 M/mcL (3.82-4.97); Red Cell Distribution Width 13.7 % (11.5-14.5); White Blood Count 5.3 K/mcL (4.3-11.1)
[2020-08-16 03:01] LABS: BUN/Creatinine Ratio 40 (6-26); Blood Urea Nitrogen 34 mg/dL (8-23); Calcium 9.2 mg/dL (8.6-10.3); Carbon Dioxide 30 mEq/L (23-29); Chloride 98 mEq/L (98-107); Glucose 348 mg/dL (70-105); Osmolality,Calculated 305 (280-300); Potassium 4.4 mEq/L (3.5-5.1); Sodium 137 mEq/L (136-145); eGFR For African Americans > 60 (> 60); eGFR For Non-African Americans > 60 (> 60)
[2020-08-16] MEDS: Ipratropium 1 PUFF INHALER IH SCH ×5 (03:24→20:32)
[2020-08-16] MEDS: Furosemide 20 MG TABLET PO SCH (08:08)
[2020-08-16] MEDS: Pregabalin 50 MG CAPSULE PO SCH ×2 (08:08→20:50)
[2020-08-16] MEDS: Insulin DETEMIR 100 UNIT/ML X5UNITS SUBQ SCH ×2 (08:10→20:50)
[2020-08-16] MEDS: Insulin LISPRO 300 UNITS/3 ML VIAL SUBQ SCH ×5 (08:14→20:50)
[2020-08-16] MEDS: Nystatin POWDER 30 GM BOTTLE TP SCH ×2 (09:15→20:50)
[2020-08-16] MEDS: Acetaminophen 325 MG TABLET PO PRN (09:51)
[2020-08-16] MEDS ORDERED: Saline Nasal Spray 44 ML BOTTLE NS PRN (13:01)
[2020-08-16] MEDS ORDERED: Chloraseptic Spray 177 ML BOTTLE MM PRN (13:01)
[2020-08-16] MEDS ORDERED: Saliva Stimulant 44.3ml BOTTLE PO PRN (13:01)
[2020-08-16] MEDS: Artificial Tears SOLN 15 ML BOTTLE BOTH EYES SCH (20:50)
[2020-08-16] MEDS: Chlorhexidine Rinse 15 ML MOUTHWASH MM SCH (20:50)
[2020-08-16] MEDS: rOPINIRole 1 MG TABLET PO SCH (20:50)
[2020-08-16] MEDS: traZODone 50 MG TABLET PO SCH (20:50)
[2020-08-17] MEDS: Ipratropium 1 PUFF INHALER IH SCH ×7 (00:23→23:19)
[2020-08-17] MEDS: *HR* Heparin 5,000 UNIT/ML VIAL IVP PRN (05:45)
[2020-08-17 06:12] LABS: Mean Corpuscular HGB Conc 32.6 g/dL (31.6-35.5)
[2020-08-17 06:14] LABS: Basophils % 0.4 %; Eosinophils # 0.1 K/mcL (0.0-0.6); Eosinophils % 0.9 %; Hematocrit 36.2 % (35.3-44.9); Hemoglobin 11.8 g/dL (11.5-15.4); Immature Granulocytes % 3.1 % (0-4); Immature Platelets 14.5 % (1.1-6.1); Lymphocytes # 0.6 K/mcL (0.6-4.6); Lymphocytes % 7.7 %; Mean Corpuscular Hemoglobin 31.5 pg (28.0-33.3); Mean Corpuscular Volume 96.5 fL (83.0-100.0); Monocytes # 0.2 K/mcL (0.0-1.3); Monocytes % 1.9 %; Neutrophils # 6.7 K/mcL (1.6-8.9); Red Blood Count 3.75 M/mcL (3.82-4.97); Red Cell Distribution Width 13.6 % (11.5-14.5); White Blood Count 7.8 K/mcL (4.3-11.1)
[2020-08-17 06:16] LABS: Platelet Count 80 K/mcL (140-400)
[2020-08-17 06:39] LABS: Alanine Aminotransferase 37 Units/L (7-52); Albumin 3.1 g/dL (3.5-5.7); Albumin/Globulin Ratio 1.1 (1.1-2.2); Alkaline Phosphatase 108 Units/L (34-104); Aspartate Amino Transferase 29 Units/L (13-39); BUN/Creatinine Ratio 46 (6-26); Bilirubin,Total 0.6 mg/dL (0.3-1.0); Blood Urea Nitrogen 32 mg/dL (8-23); Calcium 9.8 mg/dL (8.6-10.3); Carbon Dioxide 34 mEq/L (23-29); Chloride 103 mEq/L (98-107); Globulin 2.8 g/dL (2.4-3.5); Glucose 63 mg/dL (70-105); Lactate Dehydrogenase 405 Units/L (140-271); Magnesium 1.9 mg/dL (1.6-2.6); Osmolality,Calculated 301 (280-300); Phosphorous 3.2 mg/dL (2.7-4.5); Potassium 4.1 mEq/L (3.5-5.1); Sodium 143 mEq/L (136-145); Total Protein 5.9 g/dL (6.4-8.9); eGFR For African Americans > 60 (> 60); eGFR For Non-African Americans > 60 (> 60)
[2020-08-17 06:51] LABS: Ferritin 355 ng/mL (10-120)
[2020-08-17] MEDS: Multivit/Ca/Min/Fe/FA 1 TAB TABLET PO SCH (07:53)
[2020-08-17] MEDS: Furosemide 20 MG TABLET PO SCH (07:53)
[2020-08-17] MEDS: Cholecalciferol (D-3) 1,000 UNIT (25MCG) TABLET PO SCH (07:54)
[2020-08-17] MEDS: Pregabalin 50 MG CAPSULE PO SCH ×2 (07:54→20:55)
[2020-08-17] MEDS: Nystatin POWDER 30 GM BOTTLE TP SCH ×2 (07:55→21:13)
[2020-08-17] MEDS: Chlorhexidine Rinse 15 ML MOUTHWASH MM SCH ×2 (07:56→20:56)
[2020-08-17] MEDS: Artificial Tears SOLN 15 ML BOTTLE BOTH EYES SCH ×2 (08:04→21:13)
[2020-08-17] MEDS: Insulin LISPRO 300 UNITS/3 ML VIAL SUBQ SCH ×7 (08:04→21:14)
[2020-08-17 09:35] LABS: C-Reactive Protein 71 mg/L (Less than 10)
[2020-08-17] MEDS: Insulin DETEMIR 100 UNIT/ML X5UNITS SUBQ SCH ×2 (11:27→20:56)
[2020-08-17 12:38] LABS: Heparin anti-factor XA UFH 0.72 IU/mL (0.30-0.70)
[2020-08-17 14:39] LABS: INR 1.3; Prothrombin Time 14.4 Seconds (9.4-12.1)
[2020-08-17 15:18] LABS: VBG HCO3 30 mEq/L (21-27); VBG PCO2 52 mmHg (41-51); VBG PH 7.37 pH Units (7.32-7.42); VBG PO2 91 mmHg (25-50)
[2020-08-17] MEDS: *HR* Enoxaparin 100 MG/ML SYRINGE SQ SCH (17:03)
[2020-08-17] MEDS ORDERED: Warfarin perPT PO PRN (18:00)
[2020-08-17] MEDS ORDERED: *HR* Warfarin 3 MG TABLET PO ONE (18:00)
[2020-08-17] MEDS: traZODone 50 MG TABLET PO SCH (20:54)
[2020-08-17] MEDS: rOPINIRole 1 MG TABLET PO SCH (20:54)
[2020-08-18] MEDS: Ipratropium 1 PUFF INHALER IH SCH ×6 (04:00→23:49)
[2020-08-18 04:05] LABS: ABG Base Excess 5 mEq/L (-2 to 3); ABG HCO3 30 mEq/L (21-27); ABG Oxygen Saturation 88 % (95-98); ABG PCO2 45 mmHg (35-45); ABG PH 7.44 pH Units (7.32-7.45); ABG PO2 53 mmHg (85-104); ABG TCO2 32 mEq/L (20-26)
[2020-08-18 05:40] LABS: Basophils % 0.3 %; Eosinophils # 0.1 K/mcL (0.0-0.6); Eosinophils % 1.3 %; Hematocrit 36.4 % (35.3-44.9); Immature Granulocytes % 1.3 % (0-4); Immature Platelets 12.9 % (1.1-6.1); Lymphocytes # 0.4 K/mcL (0.6-4.6); Lymphocytes % 5.6 %; Mean Corpuscular Hemoglobin 32.3 pg (28.0-33.3); Mean Corpuscular Volume 97.8 fL (83.0-100.0); Mean Platelet Volume 13.6 fL (9.4-12.4); Monocytes # 0.3 K/mcL (0.0-1.3); Monocytes % 3.2 %; Red Blood Count 3.72 M/mcL (3.82-4.97); Red Cell Distribution Width 13.8 % (11.5-14.5); Segmented Neutrophils % 88.3 %; White Blood Count 7.9 K/mcL (4.3-11.1)
[2020-08-18 05:41] LABS: Platelet Count 88 K/mcL (140-400)
[2020-08-18 05:53] LABS: INR 2.4; Prothrombin Time 27.2 Seconds (9.4-12.1)
[2020-08-18 05:57] LABS: Alanine Aminotransferase 54 Units/L (7-52); Alkaline Phosphatase 115 Units/L (34-104); Aspartate Amino Transferase 32 Units/L (13-39); BUN/Creatinine Ratio 32 (6-26); Bilirubin,Total 0.7 mg/dL (0.3-1.0); Blood Urea Nitrogen 21 mg/dL (8-23); C-Reactive Protein 138 mg/L (Less than 10); Calcium 9.3 mg/dL (8.6-10.3); Carbon Dioxide 31 mEq/L (23-29); Chloride 103 mEq/L (98-107); Globulin 3.1 g/dL (2.4-3.5); Glucose 75 mg/dL (70-105); Lactate Dehydrogenase 475 Units/L (140-271); Magnesium 1.8 mg/dL (1.6-2.6); Osmolality,Calculated 294 (280-300); Phosphorous 3.5 mg/dL (2.7-4.5); Potassium 4.4 mEq/L (3.5-5.1); Sodium 141 mEq/L (136-145); Total Protein 6.1 g/dL (6.4-8.9); eGFR For African Americans > 60 (> 60); eGFR For Non-African Americans > 60 (> 60)
[2020-08-18 06:04] LABS: Estimated Average Glucose 206 mg/dl; Hemoglobin A1C 8.8 %
[2020-08-18 06:15] LABS: Ferritin 348 ng/mL (10-120)
[2020-08-18] MEDS: *HR* Enoxaparin 100 MG/ML SYRINGE SQ SCH (06:50)
[2020-08-18] MEDS ORDERED: *HR* Metoprolol 5 MG/5 ML VIAL IVP ONE (08:11)
[2020-08-18] MEDS: Cholecalciferol (D-3) 1,000 UNIT (25MCG) TABLET PO SCH (08:23)
[2020-08-18] MEDS: Pregabalin 50 MG CAPSULE PO SCH ×2 (08:23→20:24)
[2020-08-18] MEDS: Multivit/Ca/Min/Fe/FA 1 TAB TABLET PO SCH (08:23)
[2020-08-18] MEDS: Chlorhexidine Rinse 15 ML MOUTHWASH MM SCH ×2 (08:24→20:22)
[2020-08-18] MEDS: Furosemide 20 MG TABLET PO SCH (08:27)
[2020-08-18] MEDS: Artificial Tears SOLN 15 ML BOTTLE BOTH EYES SCH ×2 (08:59→20:22)
[2020-08-18] MEDS: Nystatin POWDER 30 GM BOTTLE TP SCH ×2 (08:59→20:25)
[2020-08-18] MEDS: Insulin LISPRO 300 UNITS/3 ML VIAL SUBQ SCH ×7 (08:59→20:24)
[2020-08-18] MEDS: Insulin DETEMIR 100 UNIT/ML X5UNITS SUBQ SCH ×2 (09:00→20:23)
[2020-08-18] MEDS ORDERED: Isovue-370 500 ML BOTTLE IVP ONE (11:49)
[2020-08-18] MEDS: Acetaminophen 325 MG TABLET PO PRN (12:39)
[2020-08-18 15:13] LABS: ABG Base Excess -1 mEq/L (-2 to 3); ABG HCO3 25 mEq/L (21-27); ABG Oxygen Saturation 91 % (95-98); ABG PCO2 49 mmHg (35-45); ABG PH 7.32 pH Units (7.32-7.45); ABG PO2 66 mmHg (85-104); ABG TCO2 27 mEq/L (20-26); Blood Gas VT 14 cc
[2020-08-18] MEDS: FentaNYL (PF) 1,000 MCG/100 ML IV.SOLN IVC SCH (17:17)
[2020-08-18] MEDS: Midazolam HCl 50 MG/100 ML IV.SOLN IVC SCH (17:18)
[2020-08-18] MEDS: Cisatracurium 200 MG in 0.9 % Sodium Chloride 180 ML IVC SCH (17:18)
[2020-08-18] MEDS: Norepinephrine 4 MG/254 ML IV.SOLN IVC SCH (17:18)
[2020-08-18 18:04] LABS: Hematocrit 34.7 % (35.3-44.9); Hemoglobin 10.9 g/dL (11.5-15.4); Mean Corpuscular HGB Conc 31.4 g/dL (31.6-35.5); Mean Corpuscular Hemoglobin 31.6 pg (28.0-33.3); Mean Corpuscular Volume 100.6 fL (83.0-100.0); Mean Platelet Volume 13.1 fL (9.4-12.4); Platelet Count 62 K/mcL (140-400); Red Blood Count 3.45 M/mcL (3.82-4.97); Red Cell Distribution Width 14.1 % (11.5-14.5); White Blood Count 5.7 K/mcL (4.3-11.1)
[2020-08-18 18:11] LABS: Heparin anti-factor XA UFH 0.75 IU/mL (0.30-0.70); INR 1.3
[2020-08-18] MEDS: Heparin 25,000UNIT/250ML 1/2NS 25,000 UNIT/250 ML IV.SOLN IVC SCH (18:31)
[2020-08-18] MEDS ORDERED: *HR* Heparin 5,000 UNIT/ML VIAL IVP PRN ×2 (19:00)
[2020-08-18] MEDS: rOPINIRole 1 MG TABLET PO SCH (20:25)
[2020-08-18] MEDS: traZODone 50 MG TABLET PO SCH (20:25)
[2020-08-18] MEDS ORDERED: Insulin DETEMIR 100 UNIT/ML X5UNITS SUBQ SCH (21:00)
[2020-08-19] MEDS: Insulin LISPRO 300 UNITS/3 ML VIAL SUBQ SCH ×7 (00:10→23:48)
[2020-08-19 03:52] LABS: Hemoglobin 10.2 g/dL (11.5-15.4)
[2020-08-19 03:53] LABS: Basophils % 0.2 %; Eosinophils % 0.4 %; Hematocrit 32.4 % (35.3-44.9); Immature Granulocytes % 1.2 % (0-4); Lymphocytes # 0.4 K/mcL (0.6-4.6); Lymphocytes % 7.2 %; Mean Corpuscular HGB Conc 31.5 g/dL (31.6-35.5); Mean Corpuscular Hemoglobin 31.4 pg (28.0-33.3); Mean Corpuscular Volume 99.7 fL (83.0-100.0); Mean Platelet Volume 13.1 fL (9.4-12.4); Monocytes # 0.2 K/mcL (0.0-1.3); Red Blood Count 3.25 M/mcL (3.82-4.97); Red Cell Distribution Width 13.9 % (11.5-14.5); White Blood Count 5.7 K/mcL (4.3-11.1)
[2020-08-19] MEDS: Ipratropium 1 PUFF INHALER IH SCH ×6 (03:57→23:38)
[2020-08-19 03:59] LABS: INR 1.4; Prothrombin Time 16.2 Seconds (9.4-12.1)
[2020-08-19 04:10] LABS: Alanine Aminotransferase 79 Units/L (7-52); Albumin 2.7 g/dL (3.5-5.7); Alkaline Phosphatase 112 Units/L (34-104); Aspartate Amino Transferase 38 Units/L (13-39); BUN/Creatinine Ratio 46 (6-26); Bilirubin,Total 0.5 mg/dL (0.3-1.0); Blood Urea Nitrogen 29 mg/dL (8-23); C-Reactive Protein 189 mg/L (Less than 10); Carbon Dioxide 31 mEq/L (23-29); Chloride 105 mEq/L (98-107); Globulin 2.8 g/dL (2.4-3.5); Glucose 184 mg/dL (70-105); Lactate Dehydrogenase 396 Units/L (140-271); Magnesium 2.3 mg/dL (1.6-2.6); Osmolality,Calculated 303 (280-300); Phosphorous 3.9 mg/dL (2.7-4.5); Potassium 4.6 mEq/L (3.5-5.1); Sodium 141 mEq/L (136-145); Total Protein 5.5 g/dL (6.4-8.9); eGFR For African Americans > 60 (> 60); eGFR For Non-African Americans > 60 (> 60)
[2020-08-19 04:17] LABS: Platelet Count 73 K/mcL (140-400)
[2020-08-19 04:18] LABS: Platelet Estimate Decreased (Normal)
[2020-08-19 04:28] LABS: Ferritin 387 ng/mL (10-120)
[2020-08-19] MEDS: Chlorhexidine Rinse 15 ML MOUTHWASH MM SCH ×2 (07:19→20:11)
[2020-08-19] MEDS: Multivit/Ca/Min/Fe/FA 1 TAB TABLET PO SCH (07:20)
[2020-08-19] MEDS: Pantoprazole 40 MG VIAL IVP SCH (07:20)
[2020-08-19] MEDS: Pregabalin 50 MG CAPSULE PO SCH ×2 (07:21→20:12)
[2020-08-19] MEDS: Cholecalciferol (D-3) 1,000 UNIT (25MCG) TABLET PO SCH (07:21)
[2020-08-19] MEDS: Artificial Tears SOLN 15 ML BOTTLE BOTH EYES SCH ×2 (07:22→20:11)
[2020-08-19] MEDS ORDERED: *HR* LORazepam 2 MG/ML VIAL IVP ONE (07:58)
[2020-08-19] MEDS: Insulin DETEMIR 100 UNIT/ML X5UNITS SUBQ SCH ×2 (08:44→20:14)
[2020-08-19] MEDS: Nystatin POWDER 30 GM BOTTLE TP SCH ×2 (08:45→20:13)
[2020-08-19] MEDS: Furosemide 20 MG/2 ML VIAL IVP SCH (08:52)
[2020-08-19] MEDS ORDERED: *HR* Rocuronium Bromide 50 MG/5 ML VIAL IVP ONE (11:09)
[2020-08-19] MEDS: FentaNYL (PF) 1,000 MCG/100 ML IV.SOLN IVC SCH (13:30)
[2020-08-19] MEDS: Norepinephrine 4 MG/254 ML IV.SOLN IVC SCH (13:30)
[2020-08-19] MEDS: Midazolam HCl 50 MG/100 ML IV.SOLN IVC SCH (13:30)
[2020-08-19] MEDS: Cisatracurium 200 MG in 0.9 % Sodium Chloride 180 ML IVC SCH (13:30)
[2020-08-19 18:32] LABS: Heparin anti-factor XA UFH 0.95 IU/mL (0.30-0.70)
[2020-08-19 18:47] LABS: Activated Partial Thrombo Time 164.6 Seconds (26.0-36.0)
[2020-08-19] MEDS: rOPINIRole 1 MG TABLET PO SCH (20:12)
[2020-08-19] MEDS: traZODone 50 MG TABLET PO SCH (20:12)
[2020-08-19] MEDS: *HR* LORazepam 2 MG/ML VIAL IVP PRN (20:24)
[2020-08-20 00:31] LABS: Heparin anti-factor XA UFH 0.89 IU/mL (0.30-0.70)
[2020-08-20 00:48] LABS: Activated Partial Thrombo Time 138.8 Seconds (26.0-36.0)
[2020-08-20] MEDS ORDERED: *HR* LORazepam 2 MG/ML VIAL IVP ONE (02:13)
[2020-08-20 03:06] LABS: VBG Ionized Calcium 1.27 mmol/L (1.15-1.35)
[2020-08-20 03:13] LABS: Basophils % 0.1 %; Hematocrit 34.4 % (35.3-44.9); Immature Granulocytes % 0.9 % (0-4); Red Cell Distribution Width 14.1 % (11.5-14.5)
[2020-08-20 03:15] LABS: Eosinophils % 0.4 %; Hemoglobin 10.9 g/dL (11.5-15.4); Immature Platelets 13.9 % (1.1-6.1); Lymphocytes # 0.5 K/mcL (0.6-4.6); Mean Corpuscular HGB Conc 31.7 g/dL (31.6-35.5); Mean Corpuscular Hemoglobin 31.7 pg (28.0-33.3); Mean Platelet Volume 13.1 fL (9.4-12.4); Monocytes # 0.2 K/mcL (0.0-1.3); Monocytes % 2.8 %; Neutrophils # 6.7 K/mcL (1.6-8.9); Red Blood Count 3.44 M/mcL (3.82-4.97); Segmented Neutrophils % 88.8 %; White Blood Count 7.5 K/mcL (4.3-11.1)
[2020-08-20 03:21] LABS: INR 1.3; Platelet Count 84 K/mcL (140-400); Prothrombin Time 14.6 Seconds (9.4-12.1)
[2020-08-20 03:26] LABS: Alanine Aminotransferase 78 Units/L (7-52); Albumin 2.9 g/dL (3.5-5.7); Alkaline Phosphatase 140 Units/L (34-104); Aspartate Amino Transferase 27 Units/L (13-39); BUN/Creatinine Ratio 42 (6-26); Bilirubin,Total 0.7 mg/dL (0.3-1.0); Blood Urea Nitrogen 31 mg/dL (8-23); Calcium 9.3 mg/dL (8.6-10.3); Carbon Dioxide 30 mEq/L (23-29); Chloride 105 mEq/L (98-107); Glucose 174 mg/dL (70-105); Magnesium 2.2 mg/dL (1.6-2.6); Osmolality,Calculated 305 (280-300); Phosphorous 3.7 mg/dL (2.7-4.5); Potassium 4.4 mEq/L (3.5-5.1); Sodium 142 mEq/L (136-145); Total Protein 5.9 g/dL (6.4-8.9); eGFR For African Americans > 60 (> 60); eGFR For Non-African Americans > 60 (> 60)
[2020-08-20 03:43] LABS: Ferritin 405 ng/mL (10-120)
[2020-08-20] MEDS: Ipratropium 1 PUFF INHALER IH SCH ×6 (03:48→23:27)
[2020-08-20] MEDS: Insulin LISPRO 300 UNITS/3 ML VIAL SUBQ SCH ×5 (04:04→20:17)
[2020-08-20] MEDS: *HR* LORazepam 2 MG/ML VIAL IVP PRN (06:06)
[2020-08-20] MEDS: Pantoprazole 40 MG VIAL IVP SCH (07:30)
[2020-08-20] MEDS: Furosemide 20 MG/2 ML VIAL IVP SCH (07:31)
[2020-08-20] MEDS: Nystatin POWDER 30 GM BOTTLE TP SCH ×2 (07:32→20:17)
[2020-08-20] MEDS ORDERED: Dexmedetomidine HCl 400 MCG/100 ML MLS IVC ONE (07:50)
[2020-08-20] MEDS: Dexmedetomidine HCl 400 MCG/100 ML MLS IVC SCH ×2 (08:10→20:17)
[2020-08-20] MEDS: Heparin 25,000UNIT/250ML 1/2NS 25,000 UNIT/250 ML IV.SOLN IVC SCH ×3 (08:10→23:21)
[2020-08-20] MEDS ORDERED: 0.9 % Sodium Chloride 1,000 ML ONE (08:43)
[2020-08-20] MEDS ORDERED: Albumin Human 5% 12.5 GM/250 ML IV.SOLN ONE (08:49)
[2020-08-20] MEDS: Midazolam HCl 50 MG/100 ML IV.SOLN IVC SCH ×2 (09:05→21:11)
[2020-08-20] MEDS: FentaNYL (PF) 1,000 MCG/100 ML IV.SOLN IVC SCH ×2 (09:05→15:26)
[2020-08-20] MEDS: Norepinephrine 4 MG/254 ML IV.SOLN IVC SCH (09:06)
[2020-08-20] MEDS ORDERED: Amiodarone Premix 150 MG/100 ML BAG IVPB ONE (09:30)
[2020-08-20] MEDS ORDERED: Amiodarone Premix 360 MG/200 ML BAG IVC ONE (09:30)
[2020-08-20] MEDS ORDERED: Lidocaine -MPF 2% 2 ML VIAL ONE (09:36)
[2020-08-20] MEDS ORDERED: *HR* Propofol 200 MG/20 ML VIAL IVP ONE (09:36)
[2020-08-20] MEDS ORDERED: *HR* Succinylcholine 200 MG/10 ML VIAL IVP ONE (09:36)
[2020-08-20] MEDS: Phenylephrine 75 MG in 0.9 % Sodium Chloride 250 ML IVC SCH (09:37)
[2020-08-20] MEDS: Cisatracurium 200 MG in 0.9 % Sodium Chloride 180 ML IVC SCH ×2 (09:55→20:22)
[2020-08-20 10:09] LABS: ABG Base Excess 3 mEq/L (-2 to 3); ABG HCO3 32 mEq/L (21-27); ABG Oxygen Saturation 96 % (95-98); ABG PCO2 67 mmHg (35-45); ABG PH 7.29 pH Units (7.32-7.45); ABG PO2 92 mmHg (85-104); ABG TCO2 34 mEq/L (20-26); Blood Gas Modality AF; Blood Gas VT 380 cc
[2020-08-20 11:15] LABS: Hemoglobin 10.6 g/dL (11.5-15.4); Mean Corpuscular HGB Conc 31.2 g/dL (31.6-35.5); Mean Corpuscular Hemoglobin 31.5 pg (28.0-33.3); Mean Corpuscular Volume 100.9 fL (83.0-100.0); Mean Platelet Volume 13.5 fL (9.4-12.4); Platelet Count 104 K/mcL (140-400); Red Blood Count 3.37 M/mcL (3.82-4.97); Red Cell Distribution Width 14.4 % (11.5-14.5); White Blood Count 12.9 K/mcL (4.3-11.1)
[2020-08-20 11:19] LABS: ABG Ionized Calcium 1.21 mmol/L (1.15-1.35)
[2020-08-20] MEDS: Chlorhexidine Rinse 15 ML MOUTHWASH MM SCH ×2 (11:28→20:17)
[2020-08-20] MEDS: Artificial Tears SOLN 15 ML BOTTLE BOTH EYES SCH ×5 (11:28→23:34)
[2020-08-20] MEDS: Multivit/Ca/Min/Fe/FA 1 TAB TABLET PO SCH (11:29)
[2020-08-20] MEDS: Pregabalin 50 MG CAPSULE PO SCH (11:29)
[2020-08-20] MEDS: Cholecalciferol (D-3) 1,000 UNIT (25MCG) TABLET PO SCH (11:29)
[2020-08-20] MEDS: Insulin DETEMIR 100 UNIT/ML X5UNITS SUBQ SCH ×2 (11:29→20:22)
[2020-08-20 11:32] LABS: Alanine Aminotransferase 66 Units/L (7-52); Albumin 2.8 g/dL (3.5-5.7); Alkaline Phosphatase 134 Units/L (34-104); Aspartate Amino Transferase 24 Units/L (13-39); BUN/Creatinine Ratio 37 (6-26); Bilirubin,Total 0.7 mg/dL (0.3-1.0); Blood Urea Nitrogen 32 mg/dL (8-23); Calcium 8.7 mg/dL (8.6-10.3); Carbon Dioxide 29 mEq/L (23-29); Chloride 101 mEq/L (98-107); Globulin 2.7 g/dL (2.4-3.5); Glucose 330 mg/dL (70-105); Magnesium 1.9 mg/dL (1.6-2.6); Osmolality,Calculated 306 (280-300); Phosphorous 4.8 mg/dL (2.7-4.5); Potassium 5.1 mEq/L (3.5-5.1); Sodium 138 mEq/L (136-145); Total Protein 5.5 g/dL (6.4-8.9); eGFR For African Americans > 60 (> 60); eGFR For Non-African Americans > 60 (> 60)
[2020-08-20] MEDS: Amiodarone Premix 360 MG/200 ML BAG IVC SCH (15:40)
[2020-08-20] MEDS: Docusate Oral Soln 100 MG/10 ML UDC GTUBE SCH (20:16)
[2020-08-20] MEDS: rOPINIRole 1 MG TABLET PO SCH (20:16)
[2020-08-20] MEDS: traZODone 50 MG TABLET PO SCH (20:16)
[2020-08-21] MEDS: Insulin LISPRO 300 UNITS/3 ML VIAL SUBQ SCH ×8 (00:20→23:19)
[2020-08-21 01:14] LABS: INR 1.4; Prothrombin Time 15.7 Seconds (9.4-12.1)
[2020-08-21] MEDS: Phenylephrine 75 MG in 0.9 % Sodium Chloride 250 ML IVC SCH (01:22)
[2020-08-21 02:00] LABS: Heparin anti-factor XA UFH 0.59 IU/mL (0.30-0.70)
[2020-08-21] MEDS: FentaNYL (PF) 2,500 MCG/50 ML IV.SOLN IVC SCH ×2 (02:05→15:59)
[2020-08-21] MEDS: Artificial Tears SOLN 15 ML BOTTLE BOTH EYES SCH ×6 (03:35→23:19)
[2020-08-21 03:37] LABS: Hematocrit 30.1 % (35.3-44.9); Hemoglobin 9.4 g/dL (11.5-15.4); Mean Corpuscular HGB Conc 31.2 g/dL (31.6-35.5); Mean Corpuscular Hemoglobin 31.5 pg (28.0-33.3); Mean Platelet Volume 12.8 fL (9.4-12.4); Red Blood Count 2.98 M/mcL (3.82-4.97)
[2020-08-21 03:39] LABS: Platelet Count 83 K/mcL (140-400); White Blood Count 6.4 K/mcL (4.3-11.1)
[2020-08-21] MEDS: Ipratropium 1 PUFF INHALER IH SCH ×6 (03:49→23:36)
[2020-08-21 04:00] LABS: Alanine Aminotransferase 75 Units/L (7-52); Albumin 2.7 g/dL (3.5-5.7); Alkaline Phosphatase 121 Units/L (34-104); Aspartate Amino Transferase 28 Units/L (13-39); BUN/Creatinine Ratio 48 (6-26); Bilirubin,Total 0.4 mg/dL (0.3-1.0); Blood Urea Nitrogen 39 mg/dL (8-23); C-Reactive Protein 134 mg/L (Less than 10); Calcium 8.7 mg/dL (8.6-10.3); Carbon Dioxide 29 mEq/L (23-29); Chloride 104 mEq/L (98-107); Globulin 2.6 g/dL (2.4-3.5); Glucose 316 mg/dL (70-105); Magnesium 2.3 mg/dL (1.6-2.6); Osmolality,Calculated 309 (280-300); Phosphorous 5.2 mg/dL (2.7-4.5); Potassium 4.2 mEq/L (3.5-5.1); Sodium 139 mEq/L (136-145); Total Protein 5.3 g/dL (6.4-8.9); eGFR For African Americans > 60 (> 60); eGFR For Non-African Americans > 60 (> 60)
[2020-08-21 04:35] LABS: ABG Base Excess 5 mEq/L (-2 to 3); ABG HCO3 32 mEq/L (21-27); ABG Oxygen Saturation 97 % (95-98); ABG PCO2 59 mmHg (35-45); ABG PH 7.34 pH Units (7.32-7.45); ABG PO2 99 mmHg (85-104); ABG TCO2 33 mEq/L (20-26); Blood Gas VT 380 cc
[2020-08-21] MEDS: Chlorhexidine Rinse 15 ML MOUTHWASH MM SCH ×2 (07:31→19:32)
[2020-08-21] MEDS: Multivit/Ca/Min/Fe/FA 1 TAB TABLET PO SCH (07:31)
[2020-08-21] MEDS: Pantoprazole 40 MG VIAL IVP SCH (07:31)
[2020-08-21] MEDS: Cholecalciferol (D-3) 1,000 UNIT (25MCG) TABLET PO SCH (07:31)
[2020-08-21] MEDS: Furosemide 20 MG/2 ML VIAL IVP SCH (07:31)
[2020-08-21] MEDS: Docusate Oral Soln 100 MG/10 ML UDC GTUBE SCH ×2 (07:31→19:32)
[2020-08-21] MEDS: Nystatin POWDER 30 GM BOTTLE TP SCH ×2 (07:42→20:04)
[2020-08-21] MEDS ORDERED: Dextrose Gel 15 GM/37.5 ML TUBE PO PRN ×2 (07:43)
[2020-08-21] MEDS ORDERED: D5% in Water 1,000 ML IVC PRN (07:43)
[2020-08-21] MEDS ORDERED: *HR* Dextrose 50 % in Water (Vial) 50 ML VIAL IVP PRN (07:43)
[2020-08-21] MEDS: Insulin DETEMIR 100 UNIT/ML X5UNITS SUBQ SCH ×2 (07:48→20:02)
[2020-08-21] MEDS: Cisatracurium 200 MG in 0.9 % Sodium Chloride 180 ML IVC SCH ×2 (07:52→18:48)
[2020-08-21] MEDS: Dexmedetomidine HCl 400 MCG/100 ML MLS IVC SCH ×2 (08:32→20:04)
[2020-08-21] MEDS: Norepinephrine 4 MG/254 ML IV.SOLN IVC SCH (15:50)
[2020-08-21] MEDS: Amiodarone Premix 360 MG/200 ML BAG IVC SCH (15:50)
[2020-08-21] MEDS ORDERED: Furosemide 20 MG/2 ML VIAL IVP SCH (17:00)
[2020-08-21] MEDS: Midazolam HCl 50 MG/100 ML IV.SOLN IVC SCH (18:48)
[2020-08-21] MEDS: rOPINIRole 1 MG TABLET PO SCH (19:32)
[2020-08-21] MEDS: traZODone 50 MG TABLET PO SCH (19:32)
[2020-08-21] MEDS ORDERED: Furosemide 40 MG/4 ML VIAL IVP ONE (20:45)
[2020-08-21] MEDS: Heparin 25,000UNIT/250ML 1/2NS 25,000 UNIT/250 ML IV.SOLN IVC SCH (21:05)
[2020-08-22 00:19] LABS: ABG Base Excess 3 mEq/L (-2 to 3); ABG HCO3 32 mEq/L (21-27); ABG Oxygen Saturation 85 % (95-98); ABG PCO2 70 mmHg (35-45); ABG PH 7.27 pH Units (7.32-7.45); ABG PO2 59 mmHg (85-104); ABG TCO2 34 mEq/L (20-26); Blood Gas VT 380 cc
[2020-08-22] MEDS: Norepinephrine 4 MG/254 ML IV.SOLN IVC SCH ×7 (00:21→09:00)
[2020-08-22] MEDS ORDERED: Vasopressin 40 UNIT in D5% in Water 100 ML IVC SCH (01:00)
[2020-08-22] MEDS: Phenylephrine 75 MG in 0.9 % Sodium Chloride 250 ML IVC SCH (01:38)
[2020-08-22 02:19] LABS: ABG Base Excess 3 mEq/L (-2 to 3); ABG HCO3 32 mEq/L (21-27); ABG Oxygen Saturation 90 % (95-98); ABG PCO2 75 mmHg (35-45); ABG PH 7.24 pH Units (7.32-7.45); ABG PO2 70 mmHg (85-104); ABG TCO2 34 mEq/L (20-26); Blood Gas VT 380 cc
[2020-08-22] MEDS: Cisatracurium 200 MG in 0.9 % Sodium Chloride 180 ML IVC SCH (02:20)
[2020-08-22] MEDS: Artificial Tears SOLN 15 ML BOTTLE BOTH EYES SCH ×2 (03:08→10:07)
[2020-08-22] MEDS: Ipratropium 1 PUFF INHALER IH SCH ×2 (03:46→07:35)
[2020-08-22 04:09] LABS: Hematocrit 35.2 % (35.3-44.9); Hemoglobin 10.9 g/dL (11.5-15.4); Mean Corpuscular Hemoglobin 32.3 pg (28.0-33.3); Mean Corpuscular Volume 104.5 fL (83.0-100.0); Platelet Count 100 K/mcL (140-400); Red Blood Count 3.37 M/mcL (3.82-4.97); Red Cell Distribution Width 14.1 % (11.5-14.5)
[2020-08-22 04:10] LABS: White Blood Count 2.1 K/mcL (4.3-11.1)
[2020-08-22 04:20] LABS: Albumin 2.5 g/dL (3.5-5.7); Albumin/Globulin Ratio 1.1 (1.1-2.2); Bilirubin,Total 0.6 mg/dL (0.3-1.0); Calcium 8.2 mg/dL (8.6-10.3); Globulin 2.3 g/dL (2.4-3.5); Phosphorous 3.2 mg/dL (2.7-4.5); Potassium 4.1 mEq/L (3.5-5.1); Total Protein 4.8 g/dL (6.4-8.9)
[2020-08-22] MEDS: Insulin LISPRO 300 UNITS/3 ML VIAL SUBQ SCH ×2 (04:21→10:07)
[2020-08-22 04:22] LABS: INR 1.5; Prothrombin Time 17.3 Seconds (9.4-12.1)
[2020-08-22] MEDS: FentaNYL (PF) 2,500 MCG/50 ML IV.SOLN IVC SCH (07:29)
[2020-08-22] MEDS: Midazolam HCl 50 MG/100 ML IV.SOLN IVC SCH (07:40)
[2020-08-22] MEDS ORDERED: Piperacillin/Tazobactam 3.375 GM in 0.9 % Sodium Chloride Mini Bag 100 ML IVPB SCH (08:00)
[2020-08-22 09:20] LABS: ABG Base Excess -6 mEq/L (-2 to 3); ABG HCO3 27 mEq/L (21-27); ABG Oxygen Saturation 74 % (95-98); ABG PCO2 93 mmHg (35-45); ABG PH 7.08 pH Units (7.32-7.45); ABG PO2 56 mmHg (85-104); ABG TCO2 30 mEq/L (20-26); Blood Gas Modality ASSIST CONTROL; Blood Gas VT 380 cc
[2020-08-22] MEDS ORDERED: Vancomycin 1,500 MG/265 ML IV.SOLN IVPB ONE (09:37)
[2020-08-22 09:39] VITALS: BP 48/14
[2020-08-22] MEDS: Chlorhexidine Rinse 15 ML MOUTHWASH MM SCH (10:08)
[2020-08-22] MEDS: Docusate Oral Soln 100 MG/10 ML UDC GTUBE SCH (10:09)
[2020-08-22] MEDS: Insulin DETEMIR 100 UNIT/ML X5UNITS SUBQ SCH (10:09)
[2020-08-22] MEDS: Multivit/Ca/Min/Fe/FA 1 TAB TABLET PO SCH (10:09)
[2020-08-22] MEDS: Cholecalciferol (D-3) 1,000 UNIT (25MCG) TABLET PO SCH (10:09)
[2020-08-22] MEDS: Nystatin POWDER 30 GM BOTTLE TP SCH (10:09)
[2020-08-22] MEDS: Pantoprazole 40 MG VIAL IVP SCH (10:09)
== END 2020-08-22 11:10 | disposition expired | DRG 871 ==
LOC: 2NENU 10:37 → EMEROOARM 10:37 → 2NENU 17:09 → SUATTDRO 08-08 15:29 → 2NNU 08-09 16:59 → ICNU 08-18 16:37
PROVIDERS: ADMIT Internal Medicine; ATTEND Internal Medicine